=== PATIENT | male | born 1935 | race Caucasian/White ===

== ENCOUNTER 2016-02-12 22:18 | Emergency (ER) | payer MEDICARE ==
[2016-02-12 22:33] VITALS: BP 116/66
== END 2016-02-12 22:34 | disposition left against medical advice (07) ==
LOC: ED 22:18
DX: R50.9 Fever, unspecified (principal)

== ENCOUNTER 2016-03-02 23:38 | Observation (INO) | payer MEDICARE ==
[2016-03-03] MEDS ORDERED: Haloperidol INJ IV/IM* 5 MG/ML AMP ONE (00:24)
[2016-03-03] MEDS ORDERED: diPHENhydraMINE IV* 50 MG/ML 1 ml VIAL (BENADRYL) ONE (00:24)
[2016-03-03] MEDS ORDERED: NS 0.9% 1000 ML* 1,000 ML IV ONE (00:25)
[2016-03-03] MEDS ORDERED: Haloperidol INJ IV/IM* 5 MG/ML AMP IM ONE (00:35)
[2016-03-03] MEDS: Haloperidol INJ IV/IM* 5 MG/ML AMP IM ONE ×2 (00:40→00:53)
[2016-03-03] MEDS: diPHENhydraMINE IV* 50 MG/ML 1 ml VIAL (BENADRYL) IV ONE ×2 (00:40→00:53)
[2016-03-03 01:21] LABS: Hematocrit 42 % (42-52); Hemoglobin 13.6 g/dl (14.0-18.0); Mean Corpuscular HGB Conc 33 g/dl (31-36); Mean Corpuscular Hemoglobin 29 pg (27-31); Mean Corpuscular Volume 90 fL (80-94); Mean Platelet Volume 8 um3 (7.4-10.4); Red Blood Count 4.68 10^6/ul (4.0-5.4); Red Cell Distribution Width 16 % (10.5-15); White Blood Count 7.1 10^3/ul (3.5-10.8)
[2016-03-03 01:32] LABS: Urine Bilirubin Negative (Negative); Urine Glucose Negative (Negative); Urine Nitrite Negative (Negative)
[2016-03-03 01:33] LABS: Albumin 3.6 g/dL (3.2-5.2); BUN/Creatinine Ratio 18.9 (8-20); Calcium 9.2 mg/dL (8.6-10.3); EGFR African American 70.2 (>60); EGFR Non-African American 54.6 (>60); Globulin 3.4 g/dL (2-4); Potassium 4.1 mmol/L (3.5-5.0); Total Bilirubin 0.6 mg/dL (0.2-1.0)
[2016-03-03 01:35] LABS: Troponin I 0.02 ng/mL (<0.04)
--- NOTE | 2016-03-03 02:37 | ED ---
Gage Pierre Aidan, scribed for Prakash Orantes on 03/03/16 at 0042 . Altered Mental Status - HPI Summary HPI Summary: 80 y/o male presents to the ED with acute, constant, moderate AMS. He is alert and oriented to himself, however, is unable to demonstrate orientation to place or time. According to his , he has not been feeling good at all today. Associated symptoms include a fever that was slightly reduced with Tylenol today and a cough. Hx of Alzheimers for 6 months. - History Of Current Complaint Chief Complaint: EDAltMentalStatus Stated Complaint: AMS Time Seen by Provider: 03/03/16 00:07 Hx Obtained From: Family/Senior Benefits Manager - Onset/Duration: Unknown, Still Present Timing: Constant, Lasting Days Severity Initially: Moderate Severity Currently: Moderate Character: Confusion, Agitation, Responsiveness Aggravating Factor(s): Unknown Alleviating Factor(s): Unknown Associated Signs And Symptoms: Positive: Fever. Negative: Negative - cough Related History: Similar Episode/Diagnosed As: - Dx of Alzheimer's disease - Risk Factors Cardiac Risk Factors: Hypertension, Smoking - former smoker, CAD CVA Risk Factor: Hypertension, Smoking - former smoker - Allergies/Home Medications Allergies/Adverse Reactions: Allergies Allergy/AdvReac Type Severity Reaction Status Date / Time ENVIRONMENTAL ALLERGIES Allergy Itching Uncoded 02/13/16 13:07 PMH/Surg Hx/FS Hx/Imm Hx Endocrine/Hematology History: Denies: Hx Diabetes Cardiovascular History: Reports: Hx Coronary Artery Disease, Hx Hypertension - MEDICATION IN USE, WELL CONTROLLED, Hx Rheumatic Fever Respiratory History: Reports: Hx Asthma, Hx Chronic Obstructive Pulmonary Disease (COPD) Denies: Hx Pneumonia GI History: Reports: Hx Gastroesophageal Reflux Disease, Other GI Disorders - mild heartburn occasionally History: Denies: Hx Dialysis, Hx Renal Disease Musculoskeletal History: Reports: Hx Arthritis Sensory History: Reports: Hx Contacts or Glasses, Hx Hearing Aid - right Opthamlomology History: Reports: Hx Contacts or Glasses Neurological History: Reports: Hx Dementia - early dementia - Surgical History Surgery Procedure, Year, and Place: Aortic valve replacement, CABG, aneurysm repair Infectious Disease History: Unable to Obtain/Confirm Infectious Disease History: Denies: Traveled Outside the [place] in Last 30 Days - Family History Known Family History: Positive: Cardiac Disease - Social History Occupation: Disabled Lives: With Family Alcohol Use: Daily Alcohol Amount: 1 bottle of beer per day Substance Use Type: Reports: None Smoking Status (MU): Former Smoker Type: Cigarettes Amount Used/How Often: 3 PPD Length of Time of Smoking/Using Tobacco: 38 years Have You Smoked in the Last Year: No Review of Systems Positive: Fever. Negative: Chills, Fatigue, Skin Diaphoresis Eyes: Negative ENT: Negative Cardiovascular: Negative Positive: Cough. Negative: Shortness Of Breath Gastrointestinal: Negative Genitourinary: Negative Musculoskeletal: Negative Skin: Negative Neurological: Other - AMS Positive: Slurred Speech. Negative: Headache, Weakness, Paresthesia, Numbness, Syncope Psychological: Other - AMS All Other Systems Reviewed And Are Negative: Yes Physical Exam Triage Information Reviewed: Yes Vital Signs On Initial Exam: Initial Vitals Temp Pulse Resp BP Pulse Ox 99.2 F 75 16 116/72 100 03/02/16 23:43 03/02/16 23:43 03/02/16 23:43 03/02/16 23:43 03/02/16 23:43 Vital Signs Reviewed: Yes Appearance: Positive: Well-Appearing, No Pain Distress Skin: Positive: Warm, Skin Color Reflects Adequate Perfusion, Dry Head/Face: Positive: Normal Head/Face Inspection Eyes: Positive: EOMI, APURVA ENT: Positive: Normal ENT inspection Neck: Positive: Supple, Nontender Respiratory/Lung Sounds: Positive: Clear to Auscultation, Breath Sounds Present Cardiovascular: Positive: Pulses are Symmetrical in both Upper and Lower Extremities. Negative: RRR - tachycardic Abdomen Description: Positive: Nontender, Soft Bowel Sounds: Positive: Present Musculoskeletal: Positive: Strength/ROM Intact Neurological: Positive: Sensory/Motor Intact. Negative: Alert, Oriented to Person Place, Time Psychiatric: Positive: Other - agitated and confused. Negative: Affect/Mood Appropriate - Markell Coma Scale Coma Scale Total: 14 Diagnostics - Vital Signs Vital Signs Temp Pulse Resp BP Pulse Ox 03/02/16 23:43 99.2 F 75 16 116/72 100 - Laboratory Result Diagrams: 03/03/16 00:40 03/03/16 00:40 Lab Statement: Any lab studies that have been ordered have been reviewed, and results considered in the medical decision making process. Re-Evaluation - Re-Evaluation First Eval Re-Evaluation Time: 00:46 - The patient was very combative and uncooperative on re-evaluation. Change: Worse Altered Mental Statu Course/Dx - Course Course Of Treatment: The patient will be admitted to Dr. Hatch with a diagnosis of AMS and delirium. - Diagnoses Discharge Diagnoses: Altered mental status, delerium Discharge - Discharge Plan Condition: Stable Disposition: ADMITTED TO [facility] Discharge Disposition Comment: The patient will be admitted to Dr. Hatch. Patient Education Materials: Acute Delirium (ED), Altered Mental Status (ED) The documentation as recorded by the Gage redmond Aidan accurately reflects the service I personally performed and the decisions made by Rolanda martino Emmanuel.
[2016-03-03] MEDS ORDERED: Polyethylene Glycol 3350* 17 GM PACKET PO PRN (02:51)
[2016-03-03] MEDS ORDERED: CMCS: Melatonin (NF) 3 MG TAB PO PRN (02:59)
[2016-03-03] MEDS ORDERED: Albuterol 2.5 MG/3 ML NEB.SOL* (0.083%) INH PRN (02:59)
[2016-03-03] MEDS ORDERED: Acetaminophen TAB* 325 MG PO PRN (02:59)
[2016-03-03] MEDS ORDERED: Ondansetron INJ* 2 MG/ML VIAL IV PRN (02:59)
[2016-03-03] MEDS ORDERED: NS 0.9% 1000 ML* 1,000 ML IV SCH (03:00)
--- NOTE | 2016-03-03 03:47 | HP ---
H&P (Free Text) History and Physical: PCP: [facility] Date/Time of Evaluation: 03/03/2016 0250 CC: confusion, agitation, aggression HPI: Mr Covarrubias is an 80YO male recently diagnosed with Alzheimer's presenting with acute delirium. He is currently in 5point leather restraints and unable to contribute to this history which is supplied by his . She relates that he was recently DX'd w/ Alzheimer's. He had reported not feeling well yesterday, but did not have any specific complaints beyond some diarrhea. He does have frequent abdominal pain and this was unchanged. After he went to bed, she decided to check on him. When she woke him, he was very startled, agitated, and confused. EMS was called and he became very aggressive which is continuing. At this time a CT brain has been unable to be performed. He has received 10mg haloperidol and 50mg diphenhydramine. After time for the haloperidol & diphenhydramine to take effect, he calmed and CT brain was able to be obtained. Vitals are stable & labs appear baseline. PMedHx CAD/CABG AVR AFIB on rivaroxaban PVD LE aneurysm s/p stent at [facility] Dec 2015 Alzheimer's dementia asthma GERD Allergies ENVIRONMENTAL ALLERGIES Allergy (Uncoded 02/13/16 13:07) Itching Ambulatory Orders Fluticasone NASAL SPRAY 50MCG* [Flonase NASAL SPRAY 50MCG*] 2 spray BOTH NARES DAILY 10/11/15 Fluticasone-Salmeterol 250-50* [Advair Diskus 250-50*] 1 puff INH BID 10/11/15 Simvastatin (NF) [Zocor (NF)] 40 mg PO QPM 10/11/15 Donepezil Hydrochloride [Aricept] 10 mg PO BEDTIME 11/23/15 Rivaroxaban TAB(*) [Xarelto 15 mg(*)] 15 mg PO DAILY 11/23/15 Metoprolol Tartrate TAB* [Lopressor TAB*] 25 mg PO Q12HR 01/20/16 Ranitidine TAB (NF) [Zantac TAB (NF)] 1 tab PO Q12HR PRN 01/20/16 Polyethylene Glycol 3350* [Miralax*] 17 gm PO DAILY PRN #30 01/21/16 Atrovent Hfa Inhaler* 03/03/16 Symbicort 80/4.5 (NF) PRN 03/03/16 Ventolin HFA Inhaler* PRN 03/03/16 SocHx: former smoker quit >50years ago, trivial alcohol, no recreational drugs; lives at home with his ; full code status FamHx: reviewed, non-contributory ROS: as above, otherwise reviewed and all were negative Constitutional: NAD, normally developed, thin elderly white male vitals: Vital Signs Temp 37.3 C 03/02/16 23:43 Pulse 94 03/03/16 01:30 Resp 16 03/02/16 23:43 BP 140/85 03/03/16 01:30 Pulse Ox 99 03/03/16 01:30 Intake & Output 03/02/16 03/02/16 03/03/16 11:59 23:59 11:59 Intake Total 1000 Balance 1000 Weight 0 oz Intake: IV Fluids 1000 HEENM: atraumatic; sclera/conjunctiva: non-icteric/clear; blephara: sunken; hearing: markedly hard of hearing; oropharynx: clear, mucosa tacky Neck: soft tissue: non-tender; thyroid: normal Pulmonary: scant scattered rhonchi, good aeration, no accessory muscle use CV: RR/RR, normal S1S2, no carotid bruit, no jugular venous distention, 2+ B DP/ PT, no edema Abdominal: soft, non-distended, non-tender, no rebound/guarding/rigidity, normoactive bowel sounds, no hepatosplenomegaly or masses, no costovertebral angle tenderness Musculoskeletal: general: grossly intact; gait: unable to assess Integumental: normal appearance and texture Psychiatric orientation: AA&O to PP, not TS affect: varies from calm to pinpoint angry outbursts and gutteral animal noises mood: variable as above eye contact: poor content: unreliable memory: currently impaired responses: timely insight: poor Testing: Lab Results 03/03/16 03/03/16 03/03/16 Range/Units 00:40 00:40 00:40 WBC 7.1 (3.5-10.8) 10^3/ul RBC 4.68 (4.0-5.4) 10^6/ul Hgb 13.6 L (14.0-18.0) g/dl Hct 42 (42-52) % MCV 90 (80-94) fL MCH 29 (27-31) pg MCHC 33 (31-36) g/dl RDW 16 H (10.5-15) % Plt Count 195 (150-450) 10^3/ul MPV 8 (7.4-10.4) um3 Neut % (Auto) 72.1 (38-83) % Lymph % (Auto) 16.2 L (25-47) % Parker % (Auto) 10.4 H (1-9) % Eos % (Auto) 1.0 (0-6) % Baso % (Auto) 0.3 (0-2) % Absolute Neuts (auto) 5.1 (1.5-7.7) 10^3/ul Absolute Lymphs (auto) 1.1 (1.0-4.8) 10^3/ul Absolute Monos (auto) 0.7 (0-0.8) 10^3/ul Absolute Eos (auto) 0.1 (0-0.6) 10^3/ul Absolute Basos (auto) 0 (0-0.2) 10^3/ul Absolute Nucleated RBC 0 10^3/ul Nucleated RBC % 0 INR (Anticoag Therapy) 1.39 H (0.89-1.11) APTT 40.0 H (26.0-36.3) seconds Sodium 134 (133-145) mmol/L Potassium 4.1 (3.5-5.0) mmol/L Chloride 103 (101-111) mmol/L Carbon Dioxide 22 (22-32) mmol/L Anion Gap 9 (2-11) mmol/L BUN 24 (6-24) mg/dL Creatinine 1.27 H (0.67-1.17) mg/dL Est GFR ( Amer) 70.2 (>60) Est GFR (Non-Af Amer) 54.6 (>60) BUN/Creatinine Ratio 18.9 (8-20) Glucose 134 H (70-100) mg/dL Lactic Acid (0.5-2.0) mmol/L Calcium 9.2 (8.6-10.3) mg/dL Total Bilirubin 0.60 (0.2-1.0) mg/dL AST 21 (13-39) U/L ALT 18 (7-52) U/L Alkaline Phosphatase 76 (34-104) U/L Total Creatine Kinase 76 (10-223) U/L Troponin I 0.02 (<0.04) ng/mL B-Natriuretic Peptide ( - 100) pg/mL Total Protein 7.0 (6.4-8.9) g/dL Albumin 3.6 (3.2-5.2) g/dL Globulin 3.4 (2-4) g/dL Albumin/Globulin Ratio 1.1 (1-3) Urine Color Urine Appearance Urine pH (5-9) Ur Specific [place] (1.010-1.030) Urine Protein (Negative) Urine Ketones (Negative) Urine Blood (Negative) Urine Nitrate (Negative) Urine Bilirubin (Negative) Urine Urobilinogen (Negative) Ur Leukocyte Esterase (Negative) Urine Glucose (Negative) Urine Ascorbic Acid (Negative) 03/03/16 03/03/16 03/03/16 Range/Units 00:40 00:40 01:17 WBC (3.5-10.8) 10^3/ul RBC (4.0-5.4) 10^6/ul Hgb (14.0-18.0) g/dl Hct (42-52) % MCV (80-94) fL MCH (27-31) pg MCHC (31-36) g/dl RDW (10.5-15) % Plt Count (150-450) 10^3/ul MPV (7.4-10.4) um3 Neut % (Auto) (38-83) % Lymph % (Auto) (25-47) % Parker % (Auto) (1-9) % Eos % (Auto) (0-6) % Baso % (Auto) (0-2) % Absolute Neuts (auto) (1.5-7.7) 10^3/ul Absolute Lymphs (auto) (1.0-4.8) 10^3/ul Absolute Monos (auto) (0-0.8) 10^3/ul Absolute Eos (auto) (0-0.6) 10^3/ul Absolute Basos (auto) (0-0.2) 10^3/ul Absolute Nucleated RBC 10^3/ul Nucleated RBC % INR (Anticoag Therapy) (0.89-1.11) APTT (26.0-36.3) seconds Sodium (133-145) mmol/L Potassium (3.5-5.0) mmol/L Chloride (101-111) mmol/L Carbon Dioxide (22-32) mmol/L Anion Gap (2-11) mmol/L BUN (6-24) mg/dL Creatinine (0.67-1.17) mg/dL Est GFR ( Amer) (>60) Est GFR (Non-Af Amer) (>60) BUN/Creatinine Ratio (8-20) Glucose (70-100) mg/dL Lactic Acid 3.7 H* (0.5-2.0) mmol/L Calcium (8.6-10.3) mg/dL Total Bilirubin (0.2-1.0) mg/dL AST (13-39) U/L ALT (7-52) U/L Alkaline Phosphatase (34-104) U/L Total Creatine Kinase (10-223) U/L Troponin I (<0.04) ng/mL B-Natriuretic Peptide 148 H ( - 100) pg/mL Total Protein (6.4-8.9) g/dL Albumin (3.2-5.2) g/dL Globulin (2-4) g/dL Albumin/Globulin Ratio (1-3) Urine Color Yellow Urine Appearance Cloudy Urine pH 7.0 (5-9) Ur Specific [place] 1.023 (1.010-1.030) Urine Protein Negative (Negative) Urine Ketones Negative (Negative) Urine Blood Negative (Negative) Urine Nitrate Negative (Negative) Urine Bilirubin Negative (Negative) Urine Urobilinogen Negative (Negative) Ur Leukocyte Esterase Negative (Negative) Urine Glucose Negative (Negative) Urine Ascorbic Acid * H (Negative) CXR, personally reviewed: small bibasilar infiltrates vs atelectasis CT brain WO: ordered, pending Impression: 80M presenting with altered mental status of uncertain etiology DIAGNOSIS & PLAN Primary confusion, dDx: sundowning vs TIA/CVA vs partial complex seizures vs doubt infection : awaiting CT brain WO : consider EEG pending CT brain results : consider neurology consult if not cleared in AM : supportive care Secondary CAD/CABG : continue beta ciera & statin AVR : no acute issues AFIB : continue rivaroxaban & metoprolol PVD : low fat diet : continue simvastatin LE aneurysm s/p stent at [facility] Dec 2015 : no acute issues : continue statin Alzheimer's dementia : continue donepezil asthma : mometasone/formoterol : tiotropium : albuterol nebs PRN GERD : omeprazole Admission Rational: inpatient for management of acute behavioral issues of uncertain etiology in a patient at high risk of decompensation, inappropriate for outpatient setting DVTp: rivaroxaban Code Status: full HCP:
[2016-03-03 06:46] LABS: BUN/Creatinine Ratio 19.3 (8-20); Calcium 8.6 mg/dL (8.6-10.3); EGFR African American 83.7 (>60); EGFR Non-African American 65.1 (>60); Potassium 3.9 mmol/L (3.5-5.0)
[2016-03-03] MEDS ORDERED: Haloperidol INJ IV/IM* 5 MG/ML AMP IV SLOW PU ONE (07:20)
--- NOTE | 2016-03-03 07:47 | RAD ---
INDICATION: Fever. COMPARISON: Comparison is made with a prior study from January 20, 2016. TECHNIQUE: A portable view of the chest was obtained. FINDINGS: The patient is status post aortic valve replacement surgery. The heart appears mildly enlarged and unchanged. There is mild prominence of the interstitial markings which are unchanged. There are small patchy bibasilar infiltrates. No pleural effusion is seen. IMPRESSION: SMALL BIBASILAR INFILTRATES.
--- NOTE | 2016-03-03 07:57 | RAD ---
INDICATION: Altered mental status COMPARISON: Most recent comparison of the brain is dated November 01, 2015 TECHNIQUE: Contiguous axial sections of the brain were obtained from the skull base to the vertex without contrast. FINDINGS: The ventricles, cisterns and sulci exhibit central greater than peripheral involutional changes similar in appearance to the previous CT of the brain. There is periventricular and subcortical white matter hypoattenuation most consistent with chronic microvascular disease also similar to the previous CT of the brain. Otherwise the ewing-white matter differentiation is adequately maintained and there is no sulcal effacement. No significant focal abnormality or mass effect is present. There is no evidence for intracranial hemorrhage. No significant focal osseous abnormality is present. There is mild anterior posterior ethmoid air cell mucosal thickening. The mastoid air cells are well-aerated. IMPRESSION: No acute intracranial abnormality.
[2016-03-03] MEDS ORDERED: Metoprolol Tartrate TAB* 25 MG PO SCH (08:00)
[2016-03-03] MEDS ORDERED: Spiriva Inhaler DEVICE* 1 EACH DEVICE INH ONE (08:00)
[2016-03-03 08:33] VITALS: BP 148/88
[2016-03-03] MEDS ORDERED: Mometasone/Formoter 200/5 MDI INH SCH (09:00)
[2016-03-03] MEDS ORDERED: Pantoprazole IV* 40 MG IV SCH (09:00)
[2016-03-03] MEDS ORDERED: Tiotropium CAP.INH* CAP.INH/18 MCG (USE ORDER SET !) INH SCH (09:00)
[2016-03-03] MEDS ORDERED: Docusate CAP* 100 MG PO SCH (09:00)
--- NOTE | 2016-03-03 12:57 | PN ---
Subjective Date of Service: 03/03/16 Interval History: Saw patient this afternoon. He was sitting up in bed eating lunch. Calm, reported no complaints. Denies any pain. Says he lives home with his Beckie. Admits to memory problems. Called Beckie at home but no answer, left VM. Family History: Unchanged from Admission Social History: Unchanged from Admission Past Medical History: Unchanged from Admission Objective Active Medications: Acetaminophen (Tylenol Tab*) 650 mg PO Q6H PRN Albuterol (Ventolin 2.5 Mg/3 Ml Neb.Devika*) 2.5 mg INH Q2H PRN Atorvastatin Calcium (Lipitor*) 20 mg PO QPM RASHEEDA Docusate Sodium (Colace Cap*) 200 mg PO BID RASHEEDA Donepezil HCl (Aricept Tab*) 10 mg PO BEDTIME RASHEEDA Sodium Chloride (Ns 0.9% 1000 Ml*) 1,000 mls @ 75 mls/hr IV PER RATE RASHEEDA Melatonin (Melatonin (Nf)) 3 mg PO BEDTIME PRN; Protocol Metoprolol Tartrate (Lopressor Tab*) 25 mg PO BID WITH MEALS RASHEEDA Mometasone Furoate/Formoterol Fumar (Dulera 200/5 Mdi*) 2 puff INH BID RASHEEDA Ondansetron HCl (Zofran Inj*) 4 mg IV Q6H PRN Pantoprazole Sodium (Protonix Iv*) 40 mg IV DAILY RASHEEDA Polyethylene Glycol/Electrolytes (Miralax*) 17 gm PO DAILY PRN Rivaroxaban (Xarelto(*)) 15 mg PO 1700 RASHEEDA Tiotropium [place] (Spiriva Cap.Inh*) 1 cap INH DAILY RASHEEDA Vital Signs 03/03/16 03/03/16 03/03/16 03:00 03:30 04:03 Temperature 99.1 F Pulse Rate 85 84 Respiratory Rate Blood Pressure 135/85 147/95 (mmHg) O2 Sat by Pulse 99 99 Oximetry 03/03/16 03/03/16 03/03/16 05:06 07:46 08:00 Temperature 97.9 F Pulse Rate 91 75 Respiratory 16 17 18 Rate Blood Pressure 145/96 (mmHg) O2 Sat by Pulse 96 95 Oximetry 03/03/16 08:32 Temperature 98.4 F Pulse Rate 84 Respiratory 16 Rate Blood Pressure 148/88 (mmHg) O2 Sat by Pulse 98 Oximetry Oxygen Devices in Use Now: None Appearance: Elderly, M, laying in bed in NAD Eyes: No Scleral Icterus Ears/Nose/Mouth/Throat: Mucous Membranes Moist Neck: NL Appearance and Movements; NL JVP Respiratory: Symmetrical Chest Expansion and Respiratory Effort, Clear to Auscultation Cardiovascular: NL Sounds; No Murmurs; No JVD, RRR Abdominal: NL Sounds; No Tenderness; No Distention Lymphatic: No Cervical Adenopathy Extremities: No Edema Skin: No Rash or Ulcers Neurological: - - Alert, oriented to self, "hospital" could not tell me what city or the year or month, said it was Winter and correct day, no focal deficits Result Diagrams: 03/03/16 00:40 03/03/16 05:55 Assess/Plan/Problems-Billing Assessment: Delirium/AMS in an 80 yo M with hx of AD, AFib on rivaroxaban, CAD, PVR, asthma , GERD - Patient Problems (1) Delirium Current Visit: Yes Comment: seems to have resolved. In the setting of dementia. Unclear what the trigger may have been. No evidence of infection, CT head negative. EEG done, pending read. ?dehydration. Continue Donepezil. Trying to contact . (2) CAD (coronary artery disease) Current Visit: Yes Comment: Continue metoprolol, statin (3) Afib Current Visit: No Comment: Continue metoprolol and xarelto (4) Asthma Current Visit: Yes Comment: Continue home medications (5) DVT prophylaxis Current Visit: No Comment: Xarelto Status and Disposition: Awaiting input from , potential discharge today
[2016-03-03] MEDS ORDERED: Rivaroxaban TAB(*) 15 MG PO SCH (17:00)
[2016-03-03] MEDS ORDERED: Atorvastatin* 20 MG TAB PO SCH (18:00)
[2016-03-03] MEDS ORDERED: Donepezil TAB* 5 MG PO SCH (21:00)
--- NOTE | 2016-03-04 03:40 | DS ---
DISCHARGE SUMMARY: DATE OF ADMISSION: 03/03/16 DATE OF DISCHARGE: 03/03/16 PRIMARY CARE PHYSICIAN: [facility]. PRINCIPAL DISCHARGE DIAGNOSES: 1. Delirium. 2. Dementia. SECONDARY DIAGNOSES: 1. Atrial fibrillation, on Xarelto. 2. Congestive heart disease. 3. Peripheral vascular disease. 4. Alzheimer's disease. 5. Dementia. 6. Asthma. 7. Gastroesophageal reflux disease. STUDIES DONE DURING HOSPITALIZATION: 1. Chest x-ray, impression: Small bibasilar infiltrates. 2. CT of the brain without contrast, impression: No acute intracranial abnormality. DISCHARGE MEDICATIONS REGIMEN: 1. Tylenol 650 mg by mouth every 6 hours as needed for pain or fever. 2. Haldol 5 mg by mouth every 6 hours as needed for agitation. 3. Xarelto 15 mg by mouth daily. 4. Donepezil 10 mg by mouth at bedtime. 5. Simvastatin 40 mg by mouth at bedtime. 6. Metoprolol tartrate 25 mg by mouth 2 times daily. 7. MiraLAX 17 g by mouth daily as needed for constipation. 8. Ranitidine 1 tablet by mouth every 12 hours as needed for indigestion. 9. Flonase 2 sprays at both nares daily. 10. Advair 1 puff inhaled 2 times daily. HISTORY OF PRESENT ILLNESS AND HOSPITAL SUMMARY: Please see the full history and physical by Dr. Brayan Mota for full details. Briefly, Mr. Covarrubias is an 80- year-old male with a past medical history as above including Alzheimer 's dementia diagnosed about 6 months ago, who presents to the hospital with delirium. This was in the setting of some recent diarrhea and possibly some low -grade fevers. Labs and imaging were relatively unremarkable aside from mild lactic acidosis and LARISA, which resolved promptly with IV fluids. The patient had no signs of infection on blood work or urinalysis. Chest x-ray was not convincing for any pneumonia. CT scan of the head was negative. An EEG was done. The final report is pending at the time of this discharge summary. The patient was agitated in hospital and received Benadryl and Haldol. Today, when he was evaluated, he seemed back to his baseline. I spoke at length with his , who is eager to take him home. We decided to trial some Haldol at home to see if it would help with the infrequent times he becomes overly agitated. She will follow up with his PCP as an outpatient. TIME SPENT: Total time spent on this discharge 45 minutes. This is a summary of the hospitalization. Please see the medical record for further details. [id number] #: [id number] MTDD
--- NOTE | 2016-03-11 02:24 | EEG ---
ELECTROENCEPHALOGRAPHY: DATE OF STUDY: 03/03/16 - ROOM #405 LOCATION: He is an inpatient on . CLINICAL PROBLEM: Agitation and confusion in a patient with dementia. MEDICATIONS: Include: 1. Dulera. 2. Donepezil. 3. Xarelto. 4. Lopressor. 5. Zofran. REPORT: This 16-channel EEG is remarkable for background activity consisting of a posterior rhythm approaching alpha frequencies about 7 to sometimes 8 cycles per second, which does appear to be suppressed somewhat by eye opening. Beta rhythms otherwise predominate centrally and beta rhythms predominate bifrontally. Activation procedures were not attempted. The patient may drowse with some vertex sharp activity with sleep spindles and not clearly identified. There are no focal epileptiform discharges during this recording. CLINICAL IMPRESSION: Abnormal EEG due to generalized slowing of background rhythms consistent with mild diffuse cerebral dysfunction. There are no focal or epileptiform discharges during this recording. [id number] #: [id number] MTDD
--- NOTE | 2016-05-30 22:14 | ED ---
Gage Pierre Aidan, scribed for Prakash Orantes on 03/03/16 at 0533 . Progress - Progress Note Progress Note: BRAIN CT IMPRESSION: NO HEMORRHAGE, GROSS ACUTE INFARCT, OR CHANGE. Re-Evaluation - Re-Evaluation First Eval Re-Evaluation Time: 00:46 - The patient was very combative and uncooperative on re-evaluation. Change: Worse Course/Dx - Course Course Of Treatment: The patient will be admitted to Dr. Hatch with a diagnosis of AMS and delirium. - Diagnoses Provider Diagnoses: Altered mental status, delerium The documentation as recorded by the Gage redmond Aidan accurately reflects the service I personally performed and the decisions made by Rolanda martino Emmanuel.
== END 2016-03-03 15:20 | disposition home or self-care (01) ==
LOC: ED 23:38 → MED 03-03 02:53 → INTOOBSV 03-03 02:53
PROVIDERS: ADMIT Hospitalist; ATTEND Hospitalist
DX: G30.9 Alzheimer's disease, unspecified (principal); F02.80 Dementia in other diseases classified elsewhere, unspecified severity, without behavioral disturbance, psychotic disturbance, mood disturbance, and anxiety; F05 Delirium due to known physiological condition; I48.91 Unspecified atrial fibrillation; Z79.01 Long term (current) use of anticoagulants; I50.9 Heart failure, unspecified; I25.10 Atherosclerotic heart disease of native coronary artery without angina pectoris; I73.9 Peripheral vascular disease, unspecified; K21.9 Gastro-esophageal reflux disease without esophagitis; J45.909 Unspecified asthma, uncomplicated; Z79.899 Other long term (current) drug therapy; Z87.891 Personal history of nicotine dependence; Z95.1 Presence of aortocoronary bypass graft
CPT/HCPCS: 36415; 70450; 71010; 80048; 80053; 81003; 82550; 83605; 83880; 84484; 85025; 85610; 85730; 87040; 95816; 96361; 96372; 96374; 96375; 99285; A9270-GY; G0378; J1200; J1630

== ENCOUNTER 2017-03-26 12:43 | Emergency (ER) | payer MEDICARE ==
--- NOTE | 2017-03-26 13:37 | RAD ---
HISTORY: Syncope COMPARISONS: March 03, 2016 TECHNIQUE: Multiple contiguous axial CT scans were obtained of the head without intravenous contrast. FINDINGS: HEMORRHAGE/INFARCT: There is no hemorrhage or acute infarct. MASSES/SHIFT: There is no mass or shift. EXTRA-AXIAL SPACES: There are no extra-axial fluid collections. SULCI AND VENTRICLES: There is mild diffuse and proportional enlargement of the sulci and ventricles. CEREBRUM: There is mild hypoattenuation of the periventricular and subcortical white matter. BRAINSTEM: There are no focal parenchymal abnormalities. CEREBELLUM: There are no focal parenchymal abnormalities. VESSELS: There is calcification of the cavernous segments of the internal carotid arteries bilaterally. PARANASAL SINUSES: There is mucosal thickening of ethmoid air cells. There is postsurgical change to the sinuses. ORBITS: The orbits are unremarkable. BONES AND SOFT TISSUE: No bone or soft tissue abnormalities are noted. OTHER: None IMPRESSION: NO ACUTE INTRACRANIAL PATHOLOGY.
[2017-03-26 13:42] LABS: ABS Basophils 0 10^3/ul (0-0.2); ABS Eosinophils 0.2 10^3/ul (0-0.6); ABS Lymphocytes 1.2 10^3/ul (1.0-4.8); ABS Monocytes 0.6 10^3/ul (0-0.8); ABS Nucleated RBC 0 10^3/ul; Hematocrit 42 % (42-52); Hemoglobin 13.5 g/dl (14.0-18.0); Lymphocyte % 17.6 % (25-47); Mean Corpuscular HGB Conc 33 g/dl (31-36); Mean Corpuscular Hemoglobin 29 pg (27-31); Mean Corpuscular Volume 89 fL (80-94); Mean Platelet Volume 8 um3 (7.4-10.4); Nucleated Red Blood Cells % 0; Platelet Count 151 10^3/ul (150-450); Red Blood Count 4.66 10^6/ul (4.0-5.4); Red Cell Distribution Width 15 % (10.5-15); White Blood Count 7.1 10^3/ul (3.5-10.8)
--- NOTE | 2017-03-26 13:54 | RAD ---
HISTORY: Syncope COMPARISONS: March 03, 2016 VIEWS: 1: frontal portable view of the chest at 1:20 PM FINDINGS: LINES AND TUBES: None. CARDIOMEDIASTINAL SILHOUETTE: The cardiomediastinal silhouette is normal for portable technique. PLEURA: The costophrenic angles are sharp. No pleural abnormalities are noted. LUNG PARENCHYMA: There is hyperinflation with biapical emphysematous change. There is improved aeration of the lung bases. ABDOMEN: The upper abdomen is clear. There is no subphrenic gas. BONES AND SOFT TISSUES: The patient is status post median sternotomy. IMPRESSION: COPD.
[2017-03-26 14:00] LABS: EGFR Non-African American 54.9 (>60)
[2017-03-26 14:21] LABS: Urine Appearance Clear; Urine Blood Negative (Negative); Urine Color Straw; Urine Ketones Negative (Negative); Urine Protein Negative (Negative); Urine Specific Gravity 1.003 (1.010-1.030); Urine Urobilinogen Negative (Negative)
[2017-03-26] MEDS: Iodixanol* (CONTRAST) 320 MG/ML 100 ML SDV IV ONE (15:18)
[2017-03-26 15:31] VITALS: BP 137/84
--- NOTE | 2017-03-26 15:38 | RAD ---
CLINICAL HISTORY: Abdominal pain COMPARISON: February 13, 2016 TECHNIQUE: Multiple contiguous axial CT scans were obtained of the abdomen and pelvis after the administration of intravenous contrast. Coronal and sagittal multiplanar reformations are submitted for review. Oral contrast was not administered. Delayed images were obtained through the abdomen and pelvis. FINDINGS: LUNG BASES: There is linear atelectasis versus pleural parenchymal scarring of the right lung base. There are prosthetic aortic valve is noted. LIVER: The liver is diffusely low in attenuation compared to the spleen. There are no focal hepatic parenchymal masses. BILE DUCTS: There is no intrahepatic or extrahepatic biliary dilatation. GALLBLADDER: The gallbladder is incompletely distended but is grossly normal. PANCREAS: There is fatty atrophy of the pancreas. There is stable coarse calcification of the neck of the pancreas. There is no pancreatic ductal dilatation. SPLEEN: Normal in size and appearance. UPPER GI TRACT: Evaluation of the gastrointestinal tract is limited by incomplete gastric distention. The upper GI tract is unremarkable. SMALL BOWEL AND MESENTERY: The small bowel is normal in contour, course, and caliber. There is no obstruction or dilatation. COLON: The colon is normal in contour, course, caliber. There is no pericolonic inflammatory change. ADRENALS: Normal bilaterally. KIDNEYS: The kidneys are normal in shape, size, contour, and axis. There is no hydronephrosis or nephrolithiasis. BLADDER: The bladder is smooth in contour. PELVIC ORGANS: The prostate is diffusely enlarged. The seminal vesicles are symmetric. AORTA: The patient is status post aortic stent graft. 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 IVC: Unremarkable LYMPH NODES: There is no lymphadenopathy by size criteria. ABDOMINAL WALL: There is no evidence for abdominal wall hernia. BONES AND SOFT TISSUES: There are mild diffuse degenerative changes. OTHER: None IMPRESSION: 1. FATTY LIVER. 2. STATUS POST AORTIC STENT GRAFT AND EMBOLIZATION OF A RIGHT ILIAC ARTERY ANEURYSM. 3. ENLARGED PROSTATE. 4. NO ACUTE CT PATHOLOGY OF THE VISUALIZED ABDOMEN OR PELVIS.
[2017-03-26 16:09] LABS: Urine Appearance Clear; Urine Blood Negative (Negative); Urine Color Colorless; Urine Ketones Negative (Negative); Urine Protein Negative (Negative); Urine Specific Gravity 1.003 (1.010-1.030); Urine Urobilinogen Negative (Negative)
--- NOTE | 2017-03-26 23:36 | CONS ---
CONSULTATION REPORT: DATE OF CONSULT: 03/26/17 - EMERGENCY DEPT CONSULTATION FROM: Dr. Cedeno. REASON FOR CONSULTATION: Presyncope. HEALTHCARE PROXY: His and his daughter Cheyanne. PRIMARY CARE PHYSICIAN: Treva Klein MD SOURCE OF INFORMATION: History obtained from interview with the patient and his daughter, review of past medical records. RELIABILITY: Good. HISTORY OF PRESENT ILLNESS: This is an 81-year-old man, last hospital stay in February after admitted with agitated delirium on top of his dementia, who has been in his usual state at home, although his daughter has been encouraging him to drink more because she says he "does not drink enough water" who had an episode this morning where he was standing in the kitchen, suddenly became dizzy , and collapsed to the floor without loss of consciousness. He described the dizziness as a disequilibrium, not associated with any chest pain, shortness of breath, nausea, or vomiting. This all occurred around 8:30 in the morning. He was able to stand up from the floor and call for help. He still felt dizzy that gradually resolved over the ensuing hour. He denies any recent fevers or chills, cough, although he is coughing in the room, sick contacts. No medication changes, diarrhea, or emesis. He notes some slight dysuria for several days. When interviewed by this author, he had noted crampy abdominal pain that was rated low out of 10 that has been bothering him for some time. This was corroborated by his daughter who says he has had some crampy abdominal pain for the last several weeks if not longer that she notes he struggles with constipation for some time. Other than mild abdominal discomfort, the patient felt well and was ambulated around the emergency room, back and forth the emergency room without any distress. 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 MEDICATIONS: 1. Namenda. 2. Loratadine. 3. Ipratropium. 4. Simvastatin. 5. Donepezil. 6. Ranitidine. 7. MiraLAX. 8. Metoprolol tartrate twice daily. 9. Advair. 10. Fluticasone. 11. Xarelto. 12. Symbicort. 13. Albuterol. ALLERGIES: No known drug allergies. FAMILY HISTORY: No CAD or CVA. SOCIAL HISTORY: Former tobacco. Lives with his . REVIEW OF SYSTEMS: As per HPI, otherwise all other systems are negative. PHYSICAL EXAM: Vitals when seen by this author: Blood pressure 117/77, heart rate 66, respiratory rate 16, T-max in the emergency room 96.8, 98% on room air. Orthostatics unremarkable. General: Appears stated age, interactive, pleasant, in no apparent distress. Oropharynx is clear. He has moist membranes. Sclerae are anicteric. Non-elevated JVD. He has regular rate and rhythm. Mechanical heart sounds. His lungs are clear to auscultation. His abdomen is soft, nontender, and nondistended to deep palpation. Positive bowel sounds. Extremities are warm and well perfused. No clubbing, cyanosis, or edema. He is alert and oriented x3. He also knows the name of the president. His cranial nerves II through XII are intact. He has 5/5 strength. He is ambulated with intact gait. DIAGNOSTIC STUDIES/LAB DATA: Labs reviewed. Urine toxicology normal. Urine is bland. Creatinine is 1.26. Troponin I was 0.00. TSH 2.39. His white blood cell count is 7.1, hemoglobin 13.5, and platelets of 151,000. Data reviewed. Chest x-ray, no cardiopulmonary disease. Notable for underlying COPD. Brain CT, no acute intracranial pathology. CT abdomen and pelvis, fatty liver status post aortic stent graft and embolization of the right iliac artery aneurysm. Enlarged prostate. EKG; normal sinus rhythm, normal limit axis, normal limit intervals, no ST or T - wave changes. ASSESSMENT AND PLAN: This is an 81-year-old man, past medical history is outlined in the history of present illness. Had an episode of sudden onset lightheadedness followed by a fall to the floor without loss of consciousness, now fully recovered and ambulating around the emergency room. His laboratory data is unremarkable, concordant with negative chest x-ray, head CT, CT abdomen and pelvis, and normal EKG. He has a negative troponin. No evidence of infection as evidenced by no leukocytosis, normal urinalysis. He likely suffers from some level of chronic dehydration given his low p.o. intake per his daughter. I think he is safe to return home. I discussed this with his daughter and the patient, both are in agreement with the plan. We discussed extensive return to emergency room instructions including recurrent symptoms or chest pain, shortness of breath, nausea, vomiting, lightheadedness, loss of consciousness, or again repeat near loss of consciousness, pain, inability to tolerate medications. They acknowledged understanding. [id number]/[facility] #: [id number]
--- NOTE | 2017-03-27 16:53 | ED ---
Todd Pierre Angela, scribed for Darren Cedeno MD on 03/26/17 at 1358 . Complex/Multi-Sys Presentation - HPI Summary HPI Summary: This pt is a 81 y/o male presenting to [facility] c/o collapsing s/p weakness in his legs today. Pt denies head strike or LOC. Pt reports his legs "crumbled" and he fell. Daughter reports the pt has abdominal pain, described as "tightness" and additionally c/o nausea. Pt denies any chest pain. Pt is 8 hours s/p surgery for aneurysm repair. - History Of Current Complaint Chief Complaint: EDWeakness Time Seen by Provider: 03/26/17 13:00 Hx Obtained From: Patient Onset/Duration: Sudden Onset, Still Present Timing: Hours Severity Currently: Moderate Location: Pain At: - abdomen Aggravating Factor(s): nothing Alleviating Factor(s): nothing Associated Signs And Symptoms: Positive: Weakness, Nausea, Abdominal Pain - Allergies/Home Medications Allergies/Adverse Reactions: Allergies Allergy/AdvReac Type Severity Reaction Status Date / Time ENVIRONMENTAL ALLERGIES Allergy Itching Uncoded 02/13/16 13:07 Home Medications: Home Medications Albuterol HFA INHALER* [Ventolin HFA Inhaler*] 2 puff INH Q6H PRN 03/26/17 [ History Confirmed 03/26/17] Budesonide/Formote 80/4.5(NF) [Symbicort 80/4.5 (NF)] 1 puff INH DAILY PRN 03/26 [History Confirmed 03/26/17] Donepezil TAB* [Aricept 5 MG TAB*] 5 mg PO BEDTIME 03/26/17 [History Confirmed 03/26/17] Ipratropium HFA INHALER(NF) [Atrovent Hfa Inhaler(NF)] 2 puff INH Q6H 03/26/17 [ History Confirmed 03/26/17] LoraTADine TAB(NF) [Claritin 10 MG TAB(NF)] 10 mg PO DAILY 03/26/17 [History Confirmed 03/26/17] Memantine XR CAP* [Namenda XR CAP*] 28 mg PO DAILY 03/26/17 [History Confirmed 03/26/17] PMH/Surg Hx/FS Hx/Imm Hx Endocrine/Hematology History: Denies: Hx Diabetes Cardiovascular History: Reports: Hx Coronary Artery Disease, Hx Hypertension - MEDICATION IN USE, WELL CONTROLLED, Hx Rheumatic Fever, Other Cardiovascular Problems/Disorders - AAA SX Respiratory History: Reports: Hx Asthma, Hx Chronic Obstructive Pulmonary Disease (COPD), Hx Seasonal Allergies Denies: Hx Pneumonia GI History: Reports: Hx Gastroesophageal Reflux Disease, Other GI Disorders - mild heartburn occasionally History: Denies: Hx Dialysis, Hx Renal Disease Musculoskeletal History: Reports: Hx Arthritis Sensory History: Reports: Hx Cataracts - L cataract, Hx Contacts or Glasses - Reading, Hx Hearing Aid - right Opthamlomology History: Reports: Hx Cataracts - L cataract, Hx Contacts or Glasses - Reading Neurological History: Reports: Hx Dementia - early dementia, Other Neuro Impairments/Disorders - Aneurysm Dec 25 w/ stent Denies: Hx Headaches, Hx Migraine, Hx Nerve Disease Psychiatric History: Reports: Hx Anxiety - Surgical History Surgery Procedure, Year, and Place: Aortic valve replacement, CABG, aneurysm repair Infectious Disease History: No Infectious Disease History: Reports: Hx Shingles Denies: Traveled Outside the [place] in Last 30 Days - Family History Known Family History: Positive: Cardiac Disease - Social History Alcohol Use: Rare Alcohol Amount: 1 bottle of beer per day Substance Use Type: Reports: None Smoking Status (MU): Former Smoker Type: Cigarettes Amount Used/How Often: 3 PPD Length of Time of Smoking/Using Tobacco: 38 years Have You Smoked in the Last Year: No Review of Systems All Other Systems Reviewed And Are Negative: Yes Physical Exam Vital Signs On Initial Exam: Initial Vitals Temp Pulse Resp BP Pulse Ox 96.8 F 61 17 120/97 99 03/26/17 12:49 03/26/17 12:49 03/26/17 12:49 03/26/17 12:49 03/26/17 12:49 Diagnostics - Vital Signs Vital Signs Temp Pulse Resp BP Pulse Ox 03/26/17 12:49 96.8 F 61 17 120/97 99 - Laboratory Lab Results: Lab Results 03/26/17 03/26/17 Range/Units 13:15 13:15 WBC 7.1 (3.5-10.8) 10^3/ul RBC 4.66 (4.0-5.4) 10^6/ul Hgb 13.5 L (14.0-18.0) g/dl Hct 42 (42-52) % MCV 89 (80-94) fL MCH 29 (27-31) pg MCHC 33 (31-36) g/dl RDW 15 (10.5-15) % Plt Count 151 (150-450) 10^3/ul MPV 8 (7.4-10.4) um3 Neut % (Auto) 70.8 (38-83) % Lymph % (Auto) 17.6 L (25-47) % [place] % (Auto) 8.1 (1-9) % Eos % (Auto) 3.0 (0-6) % Baso % (Auto) 0.5 (0-2) % Absolute Neuts (auto) 5.0 (1.5-7.7) 10^3/ul Absolute Lymphs (auto) 1.2 (1.0-4.8) 10^3/ul Absolute Monos (auto) 0.6 (0-0.8) 10^3/ul Absolute Eos (auto) 0.2 (0-0.6) 10^3/ul Absolute Basos (auto) 0 (0-0.2) 10^3/ul Absolute Nucleated RBC 0 10^3/ul Nucleated RBC % 0 Lactic Acid 1.6 (0.5-2.0) mmol/L Result Diagrams: 03/26/17 13:15 03/26/17 13:15 Lab Statement: Any lab studies that have been ordered have been reviewed, and results considered in the medical decision making process. - Radiology Chest XR Xray Interpretation: Positive (See Comments) - IMPRESSION: COPD. Dr. Cedeno has reviewed this radiology report. Radiology Interpretation Completed By: Radiologist - CT Brain CT CT Interpretation: No Acute Changes - IMPRESSION: No acute intracranial pathology. Dr. Cedeno has reviewed this radiology report. CT Interpretation Completed By: Radiologist Abdomen/Pelvis CT CT Interpretation: No Acute Changes - IMPRESSION: 1. Fatty Liver. 2. 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 3. Enlarged prostate. 4. No acute CT pathology of the visualized abdomen or pelvis. Dr. Cedeno has reviewed this radiology., Positive (See Comments) CT Interpretation Completed By: Radiologist - EKG 12:59 Cardiac Rate: Bradycardia EKG Rhythm: Sinus Bradycardia - at 57 bpm EKG Interpretation: No ST elevation. Complex Multi-Symp Course/Dx Assessment/Plan: This pt is a 81 y/o male presenting to [facility] c/o collapsing s/ p weakness in his legs today. Pt denies head strike or LOC. Pt reports his legs "crumbled" and he fell. Daughter reports the pt has abdominal pain, described as "tightness" and additionally c/o nausea. Pt denies any chest pain. Pt is 8 hours s/p surgery for aneurysm repair. Test results without any significant abnormalities except for creatinine of 1.26. Urinalysis is negative for UTI. Urine toxicology is negative. Chest XR: COPD. Abdomen/Pelvis CT: 1. Fatty Liver. 2. 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 3. Enlarged prostate. 4. No acute CT pathology of the visualized abdomen or pelvis. At this point I discussed the case with Dr. Palma, hospitalist, who consulted on the pt and recommends for the pt can be discharged home. Pt is hemodynamically stable, alert and oriented x3. Pt was instructed to return to the ED for any worsening symptoms. - Diagnoses Provider Diagnoses: Near syncope - Physician Notifications Discussed Care Of Patient With: Tim Palma Instructed by Provider To: Other - I discussed pt care with Dr. Palma, hospitalist, who reports he will consult on the pt. Discharge - Discharge Plan Condition: Stable Disposition: HOME Patient Education Materials: Near Syncope (ED) Referrals: Treva Klein MD [Primary Care Provider] - Additional Instructions: Please follow up with your primary care provider and nutrition partner. RETURN TO THE ED FOR ANY WORSENING SYMPTOMS. The documentation as recorded by the Todd redmond Angela accurately reflects the service I personally performed and the decisions made by , Darren Cedeno MD.
== END 2017-03-26 16:40 | disposition home or self-care (01) ==
LOC: ED 12:43
DX: R55 Syncope and collapse (principal); K76.0 Fatty (change of) liver, not elsewhere classified; N40.0 Benign prostatic hyperplasia without lower urinary tract symptoms; J44.9 Chronic obstructive pulmonary disease, unspecified; Z87.891 Personal history of nicotine dependence; Z95.828 Presence of other vascular implants and grafts
CPT/HCPCS: 36415; 70450; 71045; 74177; 80053; 80307; 80320; 81003; 83605; 83735; 83880; 84443; 84484; 85025; 85730; 93005; 99283; G0480; Q9967

== ENCOUNTER 2018-07-28 10:06 | Inpatient (IN) | payer MEDICARE ==
--- NOTE | 2018-07-28 10:46 | ED ---
Syncope/Near Syncope - HPI Summary HPI Summary: This patient is a 83 year old M presenting to [facility] with a chief complaint of syncope since a couple of hours ago. The patient rates the pain 3/10 in severity. Symptoms aggravated by deep breathing and coughing. Symptoms alleviated by nothing. Per EMS report, the patient was in the bathroom shaving when he had a syncopal episode. His family stated they saw the patient having "seizure-like" activity on the floor. The patient remembers having the syncopal episode, but had some LOC. He notes rib pain bilaterally. He denies CLAUDIO and blurred vision. He does not have hx of seizures, but has COPD, quadruple bypass , and mitral valve replacement history. Patient is a non-smoker. - History Of Current Complaint Chief Complaint: EDFall Time Seen by Provider: 07/28/18 10:19 Hx Obtained From: Patient Onset/Duration: Sudden Onset, Lasting Hours, Resolved Timing: Hours Context: Witnessed - family saw him having "seizure-like" activity on the floor Activity At Onset: Other - shaving in the bathroom Aggravating Factor(s): Other - deep breathing and coughing Alleviating Factor(s): Nothing Associated Signs And Symptoms: Other - positive - bilateral rib pain negative - CLAUDIO and blurred vision - Allergies/Home Medications Allergies/Adverse Reactions: Allergies Allergy/AdvReac Type Severity Reaction Status Date / Time No Known Drug Allergies Allergy See Comment Verified 07/28/18 13:36 ENVIRONMENTAL ALLERGIES Allergy Itching Uncoded 07/28/18 10:16 Home Medications: Home Medications Polyethylene Glycol 3350* [Miralax*] 17 gm PO BID 07/28/18 [History Confirmed ] Rosuvastatin Calcium 10 mg PO DAILY 07/28/18 [History Confirmed 07/28/18] PMH/Surg Hx/FS Hx/Imm Hx Previously Healthy: No Endocrine/Hematology History: Denies: Hx Diabetes Cardiovascular History: Reports: Hx Coronary Artery Disease, Hx Hypertension - MEDICATION IN USE, WELL CONTROLLED, Hx Rheumatic Fever, Other Cardiovascular Problems/Disorders - AAA SX Respiratory History: Reports: Hx Asthma, Hx Chronic Obstructive Pulmonary Disease (COPD), Hx Seasonal Allergies Denies: Hx Pneumonia GI History: Reports: Hx Gastroesophageal Reflux Disease, Other GI Disorders - mild heartburn occasionally History: Denies: Hx Dialysis, Hx Renal Disease Musculoskeletal History: Reports: Hx Arthritis Sensory History: Reports: Hx Cataracts - L cataract, Hx Contacts or Glasses - Reading, Hx Hearing Aid - right Opthamlomology History: Reports: Hx Cataracts - L cataract, Hx Contacts or Glasses - Reading Neurological History: Reports: Hx Dementia - early dementia, Other Neuro Impairments/Disorders - Aneurysm Dec 25 w/ stent Denies: Hx Headaches, Hx Migraine, Hx Nerve Disease Psychiatric History: Reports: Hx Anxiety - Surgical History Surgical History: Yes Surgery Procedure, Year, and Place: Aortic valve replacement, CABG, aneurysm repair Infectious Disease History: No Infectious Disease History: Reports: Hx Shingles Denies: Traveled Outside the [place] in Last 30 Days - Family History Known Family History: Positive: Cardiac Disease - Social History Alcohol Use: Occasionally Alcohol Amount: 1 bottle of beer per day Hx Substance Use: No Substance Use Type: Reports: None Smoking Status (MU): Former Smoker Type: Cigarettes Amount Used/How Often: 3 PPD Length of Time of Smoking/Using Tobacco: 38 years Have You Smoked in the Last Year: No Review of Systems Negative: Fever Negative: Blurred Vision Positive: Other - bilateral rib pain Positive: Syncope - with LOC. Negative: Headache All Other Systems Reviewed And Are Negative: Yes Physical Exam - Summary Physical Exam Summary: VITAL SIGNS: Reviewed. GENERAL: Patient is a well-developed and nourished elderly MALE who is lying comfortable in the stretcher. Patient is not in any acute respiratory distress. HEAD AND FACE: No signs of trauma. No ecchymosis, hematomas or skull depressions. No sinus tenderness. EYES: PERRLA, EOMI x 2, No injected conjunctiva, no nystagmus. EARS: Hearing grossly intact. Ear canals and tympanic membranes are within normal limits. MOUTH: Oropharynx within normal limits. NECK: Supple, trachea is midline, no adenopathy, no JVD, no carotid bruit, no c- spine tenderness, neck with full ROM. CHEST: Symmetric, no tenderness at palpation LUNGS: Decreased breath sounds bilaterally. No wheezing, but crackles at base of lungs. No respiratory distress CVS: Regular rate and rhythm, S1 and S2 present, no murmurs or gallops appreciated. ABDOMEN: Bilateral rib cage pain. Soft, non-tender. No signs of distention. No rebound no guarding, and no masses palpated. Bowel sounds are normal. EXTREMITIES: FROM in all major joints, no edema, no cyanosis or clubbing. NEURO: Alert and oriented x 3. No acute neurological deficits. Speech is normal and follows commands. SKIN: Dry and warm. GCS: 15 Triage Information Reviewed: Yes Vital Signs On Initial Exam: Initial Vitals Temp Pulse Resp BP Pulse Ox 97.4 F 56 16 114/74 95 07/28/18 10:13 07/28/18 10:13 07/28/18 10:13 07/28/18 10:13 07/28/18 10:13 Vital Signs Reviewed: Yes - Markell Coma Scale Best Eye Response: 4 - Spontaneous Best Motor Response: 6 - Obeys Commands Best Verbal Response: 5 - Oriented Coma Scale Total: 15 Diagnostics - Vital Signs Vital Signs Temp Pulse Resp BP Pulse Ox 07/28/18 10:13 97.4 F 56 16 114/74 95 - Laboratory Result Diagrams: 07/31/18 06:36 07/31/18 06:36 Lab Statement: Any lab studies that have been ordered have been reviewed, and results considered in the medical decision making process. - Radiology CXR Radiology Interpretation Completed By: Radiologist Summary of Radiographic Findings: IMPRESSION: COPD. These findings were reviewed by Dr. Cedeno. - CT BRAIN CT Interpretation Completed By: Radiologist Summary of CT Findings: IMPRESSION: NO ACUTE INTRACRANIAL PATHOLOGY. These findings were reviewed by Dr. Cedeno. - EKG 1028 Cardiac Rate: Bradycardia - 58 BPM EKG Rhythm: Sinus Bradycardia EKG Comparison: No Significant Change - taken on 03/26/17 Summary of EKG Findings: 1028 - No ST elevation, normal axis, sinus bradycardia 1224 Cardiac Rate: NL - 69 BPM EKG Rhythm: Sinus Rhythm Summary of EKG Findings: 1224 - Sinus rhythm, 69 BPM, no ST elevation Re-Evaluation - Re-Evaluation First Eval Re-Evaluation Time: 12:22 Comment: Nurse Elliott reports that the patient's heart rate is in the 30s and 40s. I discussed admission with the patient. Course/Dx Assessment/Plan: This patient is a 83 year old M presenting to [facility] with a chief complaint of syncope since a couple of hours ago. The patient rates the pain 3/10 in severity. Symptoms aggravated by deep breathing and coughing. Symptoms alleviated by nothing. Per EMS report, the patient was in the bathroom shaving when he had a syncopal episode. His family stated they saw the patient having "seizure-like" activity on the floor. The patient remembers having the syncopal episode, but had some LOC. He notes rib pain bilaterally. He denies CLAUDIO and blurred vision. He does not have hx of seizures, but has COPD, quadruple bypass, and mitral valve replacement history. Patient is a non-smoker. Past medical history significant for sepsis, dementia, pneumonia, atrial fibrillation taking Xarelto, delirium, and asthma. Blood test results without any significant abnormality except for sodium of 134, potassium of 5.1, creatinine of 1.31, and glucose of 208. Head CT impression: No acute intracranial pathology. Chest x-ray impression: COPD. In the ED course, the patient has remained stable. However he had 2 episodes where his heart rate decreased as low as 31 BPM, and he seems like he patient had a syncopal episode at the time. I discussed the case with Dr. Rosen from cardiology who came and consulted for this patient. He reports that he may benefit of a pacemaker. He also recommends for the patient to be admitted to the hospitalist. I discussed the physical exam findings and test results with Dr. Mercer from the hospital services who accepted the patient for admission. - Diagnoses Provider Diagnoses: Symptomatic bradycardia - Physician Notifications Discussed Care of Patient With: Claire Mercer Time Discussed With Above Provider: 12:04 Instructed by Provider To: Other - I discussed the patient's case with Dr. Mercer , hospitalist, who agrees to admit the patient. At 1228 I discussed the patient' s case with Dr. Rosen, experimental rocketsled mechanic. He will come see the patient in the ED and consult for him. Discharge - Sign-Out/Discharge Documenting (check all that apply): Patient Departure - admit Patient Received Moderate/Deep Sedation with Procedure: No - Discharge Plan Condition: Stable Disposition: ADMITTED TO [facility] - Billing Disposition and Condition Condition: STABLE Disposition: Admitted to [facility] - Attestation Statements Document Initiated by Scribe: Yes Documenting Scribe: Dago Velarde Provider For Whom Scribe is Documenting (Include Credential): Dr. Darren Cedeno MD Scribe Attestation: Dago Pierre, scribed for Dr. Darren Cedeno MD on 07/31/18 at 0732. Scribe Documentation Reviewed: Yes Provider Attestation: The documentation as recorded by the Dago redmond accurately reflects the service I personally performed and the decisions made by me, Dr. Darren Cedeno MD Status of Alena Document: Viewed
[2018-07-28 10:50] LABS: ABS Lymphocytes 0.6 10^3/ul (1.0-4.8); ABS Monocytes 0.3 10^3/ul (0-0.8); ABS Neutrophils 5.5 10^3/ul (1.5-7.7); Eosinophil % 0.6 %; Hematocrit 44 % (42-52); Hemoglobin 14.5 g/dL (14.0-18.0); Lymphocyte % 9.4 %; Mean Corpuscular HGB Conc 33 g/dL (31-36); Mean Corpuscular Hemoglobin 30 pg (27-31); Mean Corpuscular Volume 89 fL (80-94); Mean Platelet Volume 7.8 fL (7.4-10.4); Platelet Count 139 10^3/uL (150-450); Red Blood Count 4.89 10^6 /uL (4.18-5.48); Red Cell Distribution Width 15 % (10-15); White Blood Count 6.5 10^3/uL (3.5-10.8)
[2018-07-28 11:13] LABS: ALT 22 U/L (7-52); AST 24 U/L (13-39); Albumin 4.1 g/dL (3.2-5.2); Albumin/Globulin Ratio 1.5 (1-3); Alkaline Phosphatase 78 U/L (34-104); BUN/Creatinine Ratio 17.6 (8-20); Blood Urea Nitrogen 23 mg/dL (6-24); CO2 Carbon Dioxide 28 mmol/L (22-32); Calcium 9.5 mg/dL (8.6-10.3); Chloride 102 mmol/L (101-111); Creatine Kinase 79 U/L (10-223); EGFR African American 63.2 (>60); EGFR Non-African American 52.3 (>60); Globulin 2.8 g/dL (2-4); Glucose 208 mg/dL (70-100); Magnesium 2.3 mg/dL (1.9-2.7); Sodium 134 mmol/L (135-145); Total Protein 6.9 g/dL (6.4-8.9)
[2018-07-28 11:14] LABS: Troponin I 0.01 ng/mL (<0.04)
[2018-07-28 11:32] LABS: Anion Gap 4 mmol/L (2-11); Potassium 5.1 mmol/L (3.5-5.0)
[2018-07-28 11:55] LABS: Alcohol < 10 mg/dL (<10)
[2018-07-28 12:07] LABS: TSH (Thyroid Stimulating Horm) 2.35 mcIU/mL (0.34-5.60)
[2018-07-28] MEDS ORDERED: NS 0.9% 1000 ML** 1,000 ML IV SCH (13:30)
[2018-07-28] MEDS ORDERED: Albuterol HFA INHALER* 8 gm MDI INH PRN (13:32)
--- NOTE | 2018-07-28 14:00 | HP ---
CONTINUATION ADDENDUM INCLUDED ON THIS REPORT CC: KAREN Martinez; Dr. Velarde; Dr. Rosen * HISTORY AND PHYSICAL: DATE OF ADMISSION: 07/28/18 PRIMARY CARE PROVIDER: KAREN Martinez STYLE ADVISOR: Dr. Velarde. CHIEF COMPLAINT: Fall/syncope. HISTORY OF PRESENT ILLNESS: Sampson Covarrubias is an 83-year-old male with a history of dementia, but otherwise pretty independent with his activities of daily living, who was standing by the kitchen sink and all of a sudden collapsed and lost consciousness. His heard a "thump" and then she noted her on the floor. Apparently, he regained consciousness quickly. He had no complaints apart from his ribs being sore. The patient's stated that approximately 6 months ago, the patient's beta-ciera was discontinued and he has been "slowing down" for the past several months. He is still able to walk a couple of blocks to the post office and back on a daily basis. The patient currently has no complaints apart from ribcage pain. He was evaluated by Dr. Rosen in the emergency department and was noted to have transient episodes of bradycardia with a heart rate down to 28. At that point, he appeared to be in junctional rhythm. He is going to be admitted to the intensive care unit for monitoring and actually pacemaker placement. Unfortunately, he is on Eliquis and will need to wait for the patient to be 2 days off Eliquis prior to the pacemaker insertion. CONTINUATION ADDENDUM: PAST MEDICAL HISTORY: 1. The patient has history of Alzheimer's dementia with elements of aggression when hospitalized. 2. History of coronary artery bypass grafting. 3. Status post aortic valve replacement of bioprosthetic valve. 4. History of paroxysmal atrial fibrillation, on anticoagulation. 5. History of left lower extremity aneurysm, status post stenting in [facility] in December 2015. 6. Peripheral vascular disease. 7. Asthma. 8. Gastroesophageal reflux disease. 9. Diabetes, diet controlled. 10. Hearing loss, wears hearing aids. CURRENT MEDICATIONS: Include: 1. Flonase nasal spray 2 sprays both nostrils daily. 2. Atrovent inhaler 2 puffs every 6 hours p.r.n. 3. Advair 250/50 one inhalation b.i.d. 4. Rosuvastatin 10 mg daily. 5. MiraLAX 17 g b.i.d. 6. Symbicort 80/4.5 one inhalation daily p.r.n. 7. Albuterol inhaler on a p.r.n. basis. 8. Ranitidine 150 mg every 12 hours p.r.n. 9. Loratadine 10 mg daily. 10. Aricept 5 mg at bedtime. 11. Xarelto 15 mg daily. ALLERGIES: No known drug allergies. FAMILY HISTORY: Reviewed and noncontributory. SOCIAL HISTORY: The patient quit smoking 60 years ago. He denies any alcohol or drug use. His healthcare proxy is his who is by the patient's bedside today, 's name is Beckie Covarrubias. REVIEW OF SYSTEMS: Please see history of present illness. All the remaining 12 systems were reviewed with the patient and were otherwise negative. PHYSICAL EXAMINATION GENERAL: The patient is a pleasant 83-year-old male, in no acute distress. The patient is alert and oriented x2. VITAL SIGNS: Blood pressure of 108/71, heart rate of 56 and regular, respiratory rate 17, oxygen saturation 96% on room air, temperature of 97.4. HEENT: Head: Atraumatic, normocephalic. Eyes: Pupils are equal, reactive to light and accommodation. Oropharynx is clear. Mucosa moist. NECK: Supple. No JVD. No bruits bilaterally. RESPIRATORY: Clear to auscultation bilaterally. CARDIOVASCULAR: Regular rate and rhythm. No murmur. ABDOMEN: Soft, nontender. Bowel sounds are present in all 4 quadrants. EXTREMITIES: There is no edema. Pulses are +2 bilaterally. No clubbing or cyanosis. NEURO EVALUATION: Speech is clear. Cranial nerves II through XII are grossly intact. Motor strength is 5/5 bilaterally. SKIN: On evaluation of the skin, the patient has small scratch on his nose. The area is not infected. PSYCHIATRIC EVALUATION: The patient is oriented x2, pleasant, cooperative with no evidence of anxiety or depression. DIAGNOSTIC STUDIES/LAB DATA: Laboratory data showed white blood cell count of 6.5, hemoglobin of 14.5, hematocrit of 44, and platelets of 139. Sodium was 134 , potassium 4.1, chloride 102, carbon dioxide 28, BUN 22, creatinine 1.31. The patient's baseline creatinine had been at 1.2 to 1.3 in the past year. Liver function tests are unremarkable. Lactic acid 1.6. Troponin of 0.01. Brain natriuretic peptide was 71. Portable chest x-ray, impression: "COPD." The patient's EKG showed normal sinus rhythm with heart rate of 69 beats per minute with no ST changes. CT of the brain, impression: "No acute intracranial pathology." ASSESSMENT AND PLAN: 1. The patient has episodes of junctional rhythm and sinus bradycardia with subsequent syncope. At this point, he was thoroughly evaluated by Dr. Rosen. His recommendation is for the patient to be placed in the intensive care unit with atropine by the bedside. We will hold the patient's Eliquis and likely the patient is going to be restarted in 2 days. 2. In regard to the patient's history of aortic valve replacement, transthoracic echocardiogram is going to be obtained. 3. In regard to the patient's history of Alzheimer's, Aricept is going to be continued. 4. The patient's history of paroxysmal atrial fibrillation and he is on Xarelto that is going to be held. 5. For DVT prophylaxis, the patient is going to be placed on heparin subcutaneously. 6. In regard to the patient's code status, the patient's code status is do not resuscitate and his signed his MOLST form today. TIME SPENT: Approximately 65 minutes was spent on admission of this patient, more than half that time was spent [id number] with the patient during the interview and physical exam. [id number]/CPS #: [id number]/CPS #: [id number] BO
[2018-07-28 14:12] LABS: Urine Appearance Clear; Urine Bilirubin Negative (Negative); Urine Blood Negative (Negative); Urine Color Yellow; Urine Glucose 2+(150 mg/dL) (Negative); Urine Ketones Trace (Negative); Urine Nitrite Negative (Negative); Urine Protein Negative (Negative); Urine Specific Gravity 1.024 (1.010-1.030); Urine Urobilinogen Negative (Negative)
--- NOTE | 2018-07-28 14:35 | HP ---
CC: KAREN Martinez; Dr. Velarde; Dr. Rosen HISTORY AND PHYSICAL: ADDENDUM: PAST MEDICAL HISTORY: 1. The patient has history of Alzheimer's dementia with elements of aggression when hospitalized. 2. History of coronary artery bypass grafting. 3. Status post aortic valve replacement of bioprosthetic valve. 4. History of paroxysmal atrial fibrillation, on anticoagulation. 5. History of left lower extremity aneurysm, status post stenting in [facility] in December 2015. 6. Peripheral vascular disease. 7. Asthma. 8. Gastroesophageal reflux disease. 9. Diabetes, diet controlled. 10. Hearing loss, wears hearing aids. CURRENT MEDICATIONS: Include: 1. Flonase nasal spray 2 sprays both nostrils daily. 2. Atrovent inhaler 2 puffs every 6 hours p.r.n. 3. Advair 250/50 one inhalation b.i.d. 4. Rosuvastatin 10 mg daily. 5. MiraLAX 17 g b.i.d. 6. Symbicort 80/4.5 one inhalation daily p.r.n. 7. Albuterol inhaler on a p.r.n. basis. 8. Ranitidine 150 mg every 12 hours p.r.n. 9. Loratadine 10 mg daily. 10. Aricept 5 mg at bedtime. 11. Xarelto 15 mg daily. ALLERGIES: No known drug allergies. FAMILY HISTORY: Reviewed and noncontributory. SOCIAL HISTORY: The patient quit smoking 60 years ago. He denies any alcohol or drug use. His healthcare proxy is his who is by the patient's bedside today, 's name is Beckie Covarrubias. REVIEW OF SYSTEMS: Please see history of present illness. All the remaining 12 systems were reviewed with the patient and were otherwise negative. PHYSICAL EXAMINATION GENERAL: The patient is a pleasant 83-year-old male, in no acute distress. The patient is alert and oriented x2. VITAL SIGNS: Blood pressure of 108/71, heart rate of 56 and regular, respiratory rate 17, oxygen saturation 96% on room air, temperature of 97.4. HEENT: Head: Atraumatic, normocephalic. Eyes: Pupils are equal, reactive to light and accommodation. Oropharynx is clear. Mucosa moist. NECK: Supple. No JVD. No bruits bilaterally. RESPIRATORY: Clear to auscultation bilaterally. CARDIOVASCULAR: Regular rate and rhythm. No murmur. ABDOMEN: Soft, nontender. Bowel sounds are present in all 4 quadrants. EXTREMITIES: There is no edema. Pulses are +2 bilaterally. No clubbing or cyanosis. NEURO EVALUATION: Speech is clear. Cranial nerves II through XII are grossly intact. Motor strength is 5/5 bilaterally. SKIN: On evaluation of the skin, the patient has small scratch on his nose. The area is not infected. PSYCHIATRIC EVALUATION: The patient is oriented x2, pleasant, cooperative with no evidence of anxiety or depression. DIAGNOSTIC STUDIES/LAB DATA: Laboratory data showed white blood cell count of 6.5, hemoglobin of 14.5, hematocrit of 44, and platelets of 139. Sodium was 134, potassium 4.1, chloride 102, carbon dioxide 28, BUN 22, creatinine 1.31. The patient's baseline creatinine had been at 1.2 to 1.3 in the past year. Liver function tests are unremarkable. Lactic acid 1.6. Troponin of 0.01. Brain natriuretic peptide was 71. Portable chest x-ray, impression: "COPD." The patient's EKG showed normal sinus rhythm with heart rate of 69 beats per minute with no ST changes. CT of the brain, impression: "No acute intracranial pathology." ASSESSMENT AND PLAN: 1. The patient has episodes of junctional rhythm and sinus bradycardia with subsequent syncope. At this point, he was thoroughly evaluated by Dr. Rosen. His recommendation is for the patient to be placed in the intensive care unit with atropine by the bedside. We will hold the patient's Eliquis and likely the patient is going to be restarted in 2 days. 2. In regard to the patient's history of aortic valve replacement, transthoracic echocardiogram is going to be obtained. 3. In regard to the patient's history of Alzheimer's, Aricept is going to be continued. 4. The patient's history of paroxysmal atrial fibrillation and he is on Xarelto that is going to be held. 5. For DVT prophylaxis, the patient is going to be placed on heparin subcutaneously. 6. In regard to the patient's code status, the patient's code status is do not resuscitate and his signed his MOLST form today. TIME SPENT: Approximately 65 minutes was spent on admission of this patient, more than half that time was spent [id number] with the patient during the interview and physical exam. [id number]/[facility] #: [id number] BO
[2018-07-28 14:43] LABS: Urine Benzodiazepine Screen None Detected (None Detect); Urine Opiates Screen None Detected (None Detect)
[2018-07-28] MEDS ORDERED: Atropine SYRINGE* 0.1 MG/ML 10 ML SYRINGE (1 MG) ONE (16:04)
--- NOTE | 2018-07-28 17:00 | CONS ---
CC: Dr. Velarde; Charmaine Flores NP * CARDIOLOGY CONSULTATION: DATE OF CONSULT: 07/28/18 REASON FOR EVALUATION: Syncope and bradycardia. HISTORY OF PRESENT ILLNESS: This is a very pleasant 83-year-old gentleman who is accompanied by his . He has mild dementia and she helps with obtaining the history. He has a history of atrial flutter, hypertension, hyperlipidemia, diabetes, vascular disease, status post abdominal aortic aneurysm, and iliac aneurysm repair. His states that his blood pressures were low about 6 months ago and she stopped his metoprolol. She states about 3 months ago he was having some episodes of dizziness and finding himself on the floor without clear loss of consciousness, it was unclear how he ended up on the floor. That lasted for a short period of time and then resolved. She does state that normally he can walk fairly quickly and she has trouble keeping up with him, but over the last several months he has been going slower. He apparently was standing today and developed a sudden collapse while she was there. He was out for a few seconds. She noticed him on the floor. Because of a loss of consciousness she had called the ambulance. There was no incontinence and no seizure activity. While in the emergency room, he had a few episodes of bradycardia associated with decreased consciousness with junctional rhythm in the 30s and sinus bradycardia in the 30s. These were self- limited and resolved. He denies any chest pain, fevers, chills, sweats. He does have COPD , chronic cough, occasionally productive yellow sputum. He denies orthopnea or peripheral edema. He normally walks each day to the post office, which is a 15 minute round trip. He is not on any medications that can slow his rate other than donepezil. PAST MEDICAL HISTORY: Includes hypertension, coronary artery disease, status post bypass grafting, aortic valve replacement, APCs, atrial flutter, hearing aids bilaterally for impaired hearing, mild dementia. No strokes or mini strokes. He denies alcohol use or tobacco use in the last 55 years. PAST SURGICAL HISTORY: Includes aortic valve replacement, coronary bypass grafting at the [facility] in 2008. At that time, he had coronary bypass grafting x4 with saphenous vein graft to the LAD, the PDA coming off the left circ, the acute marginally RCA and aortic valve replacement for severe aortic stenosis. 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 Hines. 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 Also has a history of cancer , cataract removal in the left eye, tonsillectomy, and adenoidectomy. He had saphenous vein graft to LAD, saphenous vein graft to the lateral circ, saphenous vein graft to the PDA and saphenous vein graft to the acute marginal, aortic valve replacement with #23 Janet-Woodall pericardial device, aortic endarterectomy, patch repair of the aortic annulus with autologous pericardial patch, endoscopic vein harvest and apparently he had atrial arrhythmias perioperatively according to his . MEDICATIONS: Include: 1. Flonase. 2. Atrovent inhaler. 3. Advair Diskus. 4. Rosuvastatin 10 mg a day. 5. MiraLAX 17 g p.o. b.i.d. 6. Symbicort 1 puff daily as needed. 7. Ventolin 2 puffs q.6 p.r.n. 8. Zantac 1 tab q.12. 9. Claritin 10 mg a day. 10. Donepezil 5 mg at bedtime. 11. Xarelto 50 mg daily, his last dose was this morning. ALLERGIES: Include SEASONAL allergies, to GRASSES, ANIMALS, RAGWEED POLLEN. No drug allergies. SOCIAL HISTORY: He is and accompanied by his . He has 2 children. He is a retired engineering project designer. REVIEW OF SYSTEMS: Review of systems x10 was negative except as above. PHYSICAL EXAM: He is a well-developed, well-nourished gentleman in no apparent distress. Heart rates were initially in the 50s, but nenita to 70s while I was talking to him. Blood pressure was 100/59 at the time of the exam. No significant JVD. Carotids 2+. No bruits. Atraumatic, normocephalic, extraocular muscles intact . Sclerae anicteric. No significant JVD. No cervical adenopathy. Cardiac Exam: S1, S2, with 2/6 systolic ejection at the base and 2/6 holosystolic murmur at the apex. Chest with decreased breath sounds and prolonged expiratory phase. No CVAT. Abdomen: Bowel sounds present , nontender. No hepatosplenomegaly. Femoral pulses intact with left femoral bruit, distal pulses. The dorsalis pedis was absent on the left, posterior tibialis was diminished, pulses were 1+ on the right. DIAGNOSTIC STUDIES/LAB DATA: Include normal CBC, troponin of 0.01. Potassium 5.1, sodium low at 134, BUN 23, creatinine of 1.31. Glucose elevated at 208, mag at 2.3, troponin as mentioned 0.01. BNP of 71, cortisol was 23.4. Chest x-ray revealed COPD. CT of the brain revealed no acute pathology and the EKG revealed sinus rhythm with a first degree AV block, no acute changes, mildly prolonged QTC of 479, similar to the previous EKG of 04/27/18 except for the slight increase in the first degree AV block. Of note, the patient also had an echocardiogram performed on 06/02/17, which revealed normal LV function, EF of 55% to 60%, moderate left atrial enlargement, moderate right atrial enlargement, normal RV function, prosthetic aortic valve, trace regurgitation, mild MR, trace mitral valve stenosis, [id number] TR, mild pulmonary hypertension, PA pressure 37, borderline dilated ascending aorta similar to November 2015 except for an increase in TR. IMPRESSION: My impression is that Mr. Covarrubias has multiple medical problems and now presents with what appears to be symptomatic bradycardia and episode of syncope. I explained to him and his that I cannot say for certain whether his syncope was due to bradycardia. He also has low normal blood pressures and seems to be behind in taking in p.o. fluids. We also discussed the possibility of hypovolemia and progression of his valvular heart disease or coronary disease could be contributing to his symptoms. Given his advanced age and mild dementia, they did not want a major operation such as repeat valve replacement, catheterization or revascularization. However, they would be willing to accept a pacemaker. For the time being, I recommend the following: I suggested bed rest until we can arrange for a pacemaker. We will hold the Xarelto and defer transvenous or permanent pacemaker implantation until for 48 hours to allow his anticoagulation to reverse. I would consider hydration. If he requires pacing sooner, we could consider using the external pacer and/or transvenous pacer. I am hopeful that with bedrest and hydration, he will be able to tolerate with the bradycardia for the next 48 hours. I did discuss with the patient the potential for using the external pacer and tested it. He was adamant that he did not want to have the external pacer standby and was willing to continue with observation for now. Would consider using atropine p.r.n. for symptomatic bradycardia. I have contacted Dr. Jernigan and we will try to arrange for pacemaker later this week. At some point, would consider repeat evaluation for ischemia. I am reluctant to perform a pharmacologic stress test now given the potential for worsening bradycardia. He is to have an echo to reassess his LV function and his valve function. Case was reviewed with Dr. Mercer. [id number]/CPS #: [id number] BO
--- NOTE | 2018-07-28 18:02 | ECHO ---
*[facility]* [place] [address] Fax #: [phone] Transthoracic Echocardiogram Patient: Satish, Height: 74 in / 188 Sampson Maritn cm : 1935 Weight: 147 lb / Study Date: 07/28/2018 66.8 kg Age: 83 BP: 124 / 89 Gender: M BMI/BSA: 18.9 kg/m^2 HR: 65 bpm / 1.85 m^2 *Automation Design Engineer: * Sary Chaney RDCS RN *Referring Physician: * Silver Rosen MD *Reading Physician: * Silver Rosen MD Indications: Syncope. Aortic Valve Disorder. History: Chronic obstructive pulmonary disease. Alzheimer's dementia. Risk factors: Former tobacco use. Hypertension. Labs, prior tests, procedures, and surgery: Coronary artery bypass grafting. Aortic valve replacement with a bioprosthetic valve. Conclusions Summary: 1. Left ventricle: Systolic function is normal. The estimated ejection fraction is 60-65%. Systolic function is unchanged from the study of May 2017. Doppler parameters are consistent with abnormal left ventricular relaxation (grade 1 diastolic dysfunction). 2. Right ventricle: Systolic function is mildly reduced. Overall RV function is worse in comparison with the study of May 2017. 3. Left atrium: The atrium is mildly dilated. 4. Mitral valve: The findings are consistent with mild stenosis. Stenosis severity has increased in comparison with the study of May 2017. There is mild regurgitation. 5. Aortic valve: The mean systolic gradient is 9.0 mm Hg. The peak systolic gradient is 15.0 mm Hg. The valve area by the velocity-time integral method is 1.50 cm^2. The valve area by the peak velocity method is 1.60 cm^2. 6. Tricuspid valve: There is mild-moderate regurgitation. 7. Pulmonary arteries: Systolic pressure is mildly increased, estimated to be 39 mm Hg. Study data: Transthoracic echocardiogram. Procedure: Transthoracic echocardiography was performed. Image quality was fair. The study was technically limited due to body habitus and COPD. Complete 2D, spectral Doppler, and color flow Doppler. Patient status: Inpatient. Patient room number: ICU 9. The previous study was not available, so comparison is made to the report of May 2017. Rhythm: Normal sinus rhythm with pauses. Findings Left ventricle: The cavity size is normal. Wall thickness is normal. Systolic function is normal. The estimated ejection fraction is 60-65%. Systolic function is unchanged from the study of May 2017. Wall motion is normal; there are no regional wall motion abnormalities. Doppler parameters are consistent with abnormal left ventricular relaxation (grade 1 diastolic dysfunction). Right ventricle: The cavity size is normal. Systolic function is mildly reduced. Overall RV function is worse in comparison with the study of May 2017. The estimated peak pressure is 39 mm Hg. Left atrium: The atrium is mildly dilated. Right atrium: The atrium is mildly dilated. Mitral valve: The annulus is moderately calcified. The leaflets are mildly thickened. Mobility is restricted. The findings are consistent with mild stenosis. Stenosis severity has increased in comparison with the study of May 2017. There is mild regurgitation. Aortic valve: Not well visualized. There is a bioprosthetic valve. Grossly normal function by doppler. There are some echodense lesions in the left ventricular outflow tract adjacent to the anterior mitral annulus which may be related to artifact associated with the MAC. Not seen in the other views. Aortic valve appearance has not changed in comparison with the study of May 2017. There is trace regurgitation. Tricuspid valve: The valve is structurally normal. There is no evidence of stenosis. There is mild-moderate regurgitation. Pulmonic valve: Not well visualized. Aorta: Aortic root: The aortic root is not dilated. Ascending aorta: The ascending aorta is not visualized. Aortic arch: The aortic arch is not dilated. Pericardium: There is no pericardial effusion. Pulmonary arteries: Not visualized. Systolic pressure is mildly increased, estimated to be 39 mm Hg. Systemic veins: Inferior vena cava: Not visualized. Measurements Left ventricle Value Ref Aortic valve Value Ref TIARA, LAX (L) 3.9 cm 4.2 - Lemuel diam, ED 1.9 cm ----- 5.8 Peak v, S 1.9 m/sec ----- ESD, LAX 2.8 cm 2.5 - VTI, S 41.8 cm ----- 4.0 Mean grad, S 9.0 mm Hg ----- FS, LAX 28 % 25 - 43 Peak grad, S 15.0 mm Hg ----- PW, ED, LAX 1.0 cm 0.6 - LVOT/AV, VTI ratio 0.58 ----- 1.0 JOE, VTI 1.50 cm^2 ----- IVS/PW, ED 0.83 -------- JOE, Vmax 1.60 cm^2 ----- E', lat lemuel, TDI 11.7 cm/sec >=10.0 E/e', lat lemuel, TDI 11 -------- Mitral valve Value Ref E', med lemuel, TDI 7.0 cm/sec >=7.0 Peak E 1.34 m/sec --- -- E/e', med lemuel, TDI 19 -------- Peak A 1.56 m/sec ----- E', avg, TDI 9.4 cm/sec -------- Decel time 296 ms ----- E/e', avg, TDI 14 <=14 PHT 88 ms --- -- Mean grad, D 4.0 mm Hg ----- LVOT Value Ref Peak grad, D 7.0 mm Hg ----- Diam, S 1.80 cm -------- Peak E/A ratio 0.9 ----- Area 2.5 cm^2 -------- MVA, PHT 2.5 cm^2 ----- Peak nam, S 1.2 m/sec -------- MVA, LVOT cont 1.9 cm^2 ----- VTI, S 24.4 cm -------- Peak grad, S 6 mm Hg -------- Pulmonic valve Value Ref Mean grad, S 3 mm Hg -------- Peak v, S 0.67 m/sec ----- SV 63 ml -------- Peak grad, S 2.0 mm Hg ----- SV/bsa 34 ml/m^2 -------- Tricuspid valve Value Ref Ventricular septum Value Ref TR peak v 2.8 m/sec <=2.8 IVS, ED 0.8 cm 0.6 - Peak RV-RA grad, S 31 mm Hg ----- 1.0 Max TR nam 2.8 m/sec ----- Right ventricle Value Ref Aortic root Value Ref TIARA minor ax, A4C (H) 3.6 cm 1.9 - Root diam 3.2 cm <4.0 mid 3.5 Pressure, S 39 mm Hg -------- Aortic arch Value Ref Arch diam 2.7 cm ----- Left atrium Value Ref ML dim, A4C 3.8 cm -------- Decending aorta Value Ref SI dim, A4C 5.1 cm -------- Edu peak nam 0.71 m/sec ----- Vol/bsa, ES, 1-p 24 ml/m^2 12 - 37 A4C Pulmonary artery Value Ref Vol/bsa, ES, A/L (H) 39 ml/m^2 16 - 34 Pressure, S 37.0 mm Hg ----- Right atrium Value Ref ML dim, ES, A4C 4.0 cm 2.6 - 4.4 SI dim, ES, A4C (H) 5.4 cm 3.4 - 5.3 Estimated RAP 8 mm Hg -------- Legend: (L) and (H) luis carlos values outside specified reference range. Prepared and electronically signed by Silver Rosen MD 07/28/2018 18:02
[2018-07-28] MEDS: Ipratropium 0.5MG/2.5ML NEB* 0.5 MG/2.5 ML NEB.SOLN INH SCH ×2 (19:13→19:16)
[2018-07-28] MEDS: Mometasone/Formoter 200/5 MDI INH SCH (19:16)
[2018-07-28] MEDS ORDERED: Donepezil TAB* 5 MG PO SCH (21:00)
[2018-07-28] MEDS: Polyethylene Glycol 3350* 17 GM PACKET PO SCH (21:41)
[2018-07-28] MEDS: Heparin VIAL(*) 5000 UNITS/ML VIAL (FIVE THOUSAND) SUBCUT SCH (21:42)
[2018-07-28] MEDS: Acetaminophen TAB* 325 MG PO PRN (21:42)
[2018-07-29] MEDS: Ipratropium 0.5MG/2.5ML NEB* 0.5 MG/2.5 ML NEB.SOLN INH SCH ×3 (02:18→14:25)
[2018-07-29 04:50] LABS: ABS Lymphocytes 0.7 10^3/ul (1.0-4.8); ABS Monocytes 0.7 10^3/ul (0-0.8); ABS Neutrophils 8.8 10^3/ul (1.5-7.7); Eosinophil % 0.1 %; Hematocrit 44 % (42-52); Hemoglobin 14.4 g/dL (14.0-18.0); Lymphocyte % 7.2 %; Mean Corpuscular HGB Conc 33 g/dL (31-36); Mean Corpuscular Hemoglobin 29 pg (27-31); Mean Corpuscular Volume 89 fL (80-94); Mean Platelet Volume 8.2 fL (7.4-10.4); Platelet Count 139 10^3/uL (150-450); Red Blood Count 4.97 10^6 /uL (4.18-5.48); Red Cell Distribution Width 15 % (10-15); White Blood Count 10.3 10^3/uL (3.5-10.8)
[2018-07-29 05:02] LABS: BUN/Creatinine Ratio 17.9 (8-20); Calcium 9.3 mg/dL (8.6-10.3); EGFR African American 80.7 (>60); EGFR Non-African American 66.7 (>60); Potassium 4.7 mmol/L (3.5-5.0)
[2018-07-29] MEDS: Heparin VIAL(*) 5000 UNITS/ML VIAL (FIVE THOUSAND) SUBCUT SCH ×3 (06:20→20:45)
[2018-07-29] MEDS: Mometasone/Formoter 200/5 MDI INH SCH ×2 (07:42→19:26)
--- NOTE | 2018-07-29 07:50 | PN ---
Subjective Date of Service: 07/29/18 Interval History: patient sitting at bedside tele sinus rhythm, no significant pauses or bradycardia overnight complains of musculoskeletal right lower rib pain Medications Active Medications: Acetaminophen (Tylenol Tab*) 650 mg PO Q4H PRN PRN Reason: FEVER/PAIN Last Admin: 07/28/18 21:42 Dose: 650 mg Albuterol (Ventolin Hfa Inhaler*) 2 puff INH Q6H PRN PRN Reason: SOB/WHEEZING Cetirizine HCl (Zyrtec*) 10 mg PO DAILY [facility] Fluticasone Propionate (Flonase Nasal [place] 50mcg*) 2 spray BOTH NARES DAILY [facility] Heparin Sodium (Porcine) (Heparin Vial(*)) 5,000 units SUBCUT Q8HR [facility] Last Admin: 07/29/18 06:20 Dose: 5,000 units Sodium Chloride (Ns 0.9% 1000 Ml) 1,000 mls @ 75 mls/hr IV PER RATE [facility] Last Admin: 07/29/18 05:30 Dose: 75 mls/hr Ipratropium [place] (Atrovent 0.5 Mg Neb.Devika*) 0.5 mg INH Q6H [facility] Last Admin: 07/29/18 07:42 Dose: 0.5 mg Mometasone Furoate/Formoterol Fumar (Dulera 200/5 Mdi*) 2 puff INH BID [facility] Last Admin: 07/29/18 07:42 Dose: 2 puff Polyethylene Glycol/Electrolytes (Miralax*) 17 gm PO BID [facility] Last Admin: 07/28/18 21:41 Dose: 17 gm Objective Vital Signs: Temp Pulse Resp BP Pulse Ox 98.1 F 64 26 135/77 95 07/29/18 03:11 07/29/18 06:00 07/29/18 06:00 07/29/18 06:00 07/29/18 06:00 Oxygen Devices in Use Now: None Appearance: nad, pleasant Neck: Trachea Midline Respiratory: Symmetrical Chest Expansion and Respiratory Effort Cardiovascular: NL Sounds; No Murmurs; No JVD, RRR, No Edema Abdominal: NL Sounds; No Tenderness; No Distention Extremities: No Edema Skin: No Rash or Ulcers Neurological: - - awake, alert, evidence of memory loss Laboratory Results: 07/29/18 04:33 07/29/18 04:33 Total Bilirubin 0.80 mg/dL (0.2-1.0) 07/28/18 10:44 AST 24 U/L (13-39) 07/28/18 10:44 ALT 22 U/L (7-52) 07/28/18 10:44 Alkaline Phosphatase 78 U/L (34-104) 07/28/18 10:44 B-Natriuretic Peptide 71 pg/mL (<=100) 07/28/18 10:44 Total Protein 6.9 g/dL (6.4-8.9) 07/28/18 10:44 Albumin 4.1 g/dL (3.2-5.2) 07/28/18 10:44 Globulin 2.8 g/dL (2-4) 07/28/18 10:44 Albumin/Globulin Ratio 1.5 (1-3) 07/28/18 10:44 TSH 2.35 mcIU/mL (0.34-5.60) 07/28/18 10:44 07/28/18 10:44 Troponin I 0.01 Diagnostic Imaging: echo 07/28/2018 lvef 60-65%, no signifgicant aortic bioprosthetic dysfunction EKG Data: ekg 07/28/2018: NSR, 1 AVB, otherwise essentially unremarkable tele stip during LoC episode reviewed consistent with sinus arrest and junctional escape with HR < 40 bpm Assessment/Plan 1. Symptomatic sinus arrest/junctional escape - LVEF normal - No reversible causes 2. Dementia, mild 3. CAD s/p CABG and AVR 4. Paflutter on xarelto - Last dose 07/28 in AM 5. PAD s/p endovascular aortic and iliac repair 6. Right lower rib pain - Likely from fall/syncope, uncertain Hold SQ heparin after tonights dose (ordered) Would keep atropine near and temporary pacemaker pads in place Plan for permanent dual chamber pacemaker
--- NOTE | 2018-07-29 08:23 | PN ---
Subjective Date of Service: 07/29/18 Interval History: Pt c/o R lower chest pain/rib pain, likely after the syncope. Was restless last night, but now pleasant and cooperative. HR>50 overnight Objective Active Medications: Acetaminophen (Tylenol Tab*) 650 mg PO Q4H PRN PRN Reason: FEVER/PAIN Last Admin: 07/28/18 21:42 Dose: 650 mg Albuterol (Ventolin Hfa Inhaler*) 2 puff INH Q6H PRN PRN Reason: SOB/WHEEZING Cetirizine HCl (Zyrtec*) 10 mg PO DAILY [facility] Fluticasone Propionate (Flonase Nasal [place] 50mcg*) 2 spray BOTH NARES DAILY [facility] Heparin Sodium (Porcine) (Heparin Vial(*)) 5,000 units SUBCUT Q8HR [facility] Stop: 07/29/18 23:59 Last Admin: 07/29/18 06:20 Dose: 5,000 units Sodium Chloride (Ns 0.9% 1000 Ml) 1,000 mls @ 75 mls/hr IV PER RATE [facility] Last Admin: 07/29/18 05:30 Dose: 75 mls/hr Ipratropium [place] (Atrovent 0.5 Mg Neb.Devika*) 0.5 mg INH Q6H [facility] Last Admin: 07/29/18 07:42 Dose: 0.5 mg Mometasone Furoate/Formoterol Fumar (Dulera 200/5 Mdi*) 2 puff INH BID [facility] Last Admin: 07/29/18 07:42 Dose: 2 puff Polyethylene Glycol/Electrolytes (Miralax*) 17 gm PO BID [facility] Last Admin: 07/28/18 21:41 Dose: 17 gm Vital Signs - 8 hr 07/29/18 07/29/18 07/29/18 00:30 01:00 01:01 Temperature Pulse Rate 65 71 70 Respiratory 24 19 15 Rate Blood Pressure 139/86 131/85 131/80 (mmHg) O2 Sat by Pulse 92 95 92 Oximetry 07/29/18 07/29/18 07/29/18 01:31 02:08 02:18 Temperature Pulse Rate 67 59 64 Respiratory 23 17 24 Rate Blood Pressure 137/76 (mmHg) O2 Sat by Pulse 97 98 94 Oximetry 07/29/18 07/29/18 07/29/18 02:30 03:00 03:02 Temperature Pulse Rate 65 102 Respiratory 21 27 29 Rate Blood Pressure 117/76 148/73 (mmHg) O2 Sat by Pulse 96 89 Oximetry 07/29/18 07/29/18 07/29/18 03:11 03:31 04:00 Temperature 98.1 F Pulse Rate 69 79 Respiratory 20 20 Rate Blood Pressure 137/71 (mmHg) O2 Sat by Pulse 93 83 Oximetry 07/29/18 07/29/18 07/29/18 04:30 05:00 05:31 Temperature Pulse Rate 59 60 71 Respiratory 15 21 27 Rate Blood Pressure 136/81 136/80 138/78 (mmHg) O2 Sat by Pulse 95 94 96 Oximetry 07/29/18 07/29/18 07/29/18 06:00 07:44 07:53 Temperature 99 F Pulse Rate 64 70 Respiratory 18 18 Rate Blood Pressure 135/77 (mmHg) O2 Sat by Pulse 95 93 Oximetry Oxygen Devices in Use Now: None Appearance: 83 yo M in NAD, AAOx2 Eyes: No Scleral Icterus, PERRLA Ears/Nose/Mouth/Throat: NL Teeth, Lips, Gums, Mucous Membranes Moist Neck: NL Appearance and Movements; NL JVP, Trachea Midline Respiratory: Symmetrical Chest Expansion and Respiratory Effort, Clear to Auscultation Cardiovascular: NL Sounds; No Murmurs; No JVD Abdominal: NL Sounds; No Tenderness; No Distention Lymphatic: No Cervical Adenopathy Extremities: No Edema, No Clubbing, Cyanosis Skin: No Rash or Ulcers, No Nodules or Sclerosis Neurological: NL Muscle Strength and Tone Result Diagrams: 07/29/18 04:33 07/29/18 04:33 Microbiology and Other Data: Microbiology 07/28/18 17:14 Nasal Screen MRSA (PCR) - Final Nasal Mrsa Not Detected Assess/Plan/Problems-Billing Assessment: 83 yo M with H/o PAD, CAD(CABG), AVR presented after a syncopal even with HR in 20's - Patient Problems (1) Bradycardia Comment: likley cause of pt's syncope planned for pacer in the next 1-2 days appreciate cardiology's assistance (2) Afib Comment: paroxysmal, currently in NSR Xarelto on hold due to pacer planned in near future (3) Dementia Comment: sundowns at night Aricept held due to syncope (4) DVT prophylaxis Comment: HSQ Status and Disposition: inpatient
[2018-07-29] MEDS: Acetaminophen TAB* 325 MG PO PRN ×2 (08:27→18:04)
[2018-07-29] MEDS: Cetirizine* 10 MG TAB PO SCH (08:27)
[2018-07-29] MEDS: Polyethylene Glycol 3350* 17 GM PACKET PO SCH ×2 (08:27→20:44)
[2018-07-29] MEDS: Fluticasone NASAL SPRAY 50MCG* 16 gm SPRAY BTL BOTH NARES SCH (08:27)
[2018-07-29] MEDS ORDERED: Spiriva Inhaler DEVICE* 1 EACH DEVICE INH SCH (15:00)
[2018-07-29] MEDS ORDERED: Benzonatate CAP* 100 MG PO PRN (17:42)
[2018-07-29] MEDS: Melatonin 3 MG TAB PO SCH (20:45)
[2018-07-30 03:17] LABS: Urine Appearance Clear; Urine Bilirubin Negative (Negative); Urine Blood Negative (Negative); Urine Color Straw; Urine Glucose 1+(50 mg/dL) (Negative); Urine Ketones Negative (Negative); Urine Nitrite Negative (Negative); Urine Protein Negative (Negative); Urine Specific Gravity 1.008 (1.010-1.030); Urine Urobilinogen Negative (Negative)
[2018-07-30] MEDS: Al Hydrox/Mg Hydrox/Simet LIQ* 30 ML UDC PO PRN (05:38)
[2018-07-30] MEDS: Fluticasone NASAL SPRAY 50MCG* 16 gm SPRAY BTL BOTH NARES SCH (08:04)
[2018-07-30] MEDS ORDERED: Morphine INJ* 2 MG/ML 1 ML SYRINGE (TWO MG - NEW SYRINGE VERSION) IV PRN (08:08)
[2018-07-30] MEDS ORDERED: Tamsulosin CAP* 0.4 MG PO ONE (08:09)
[2018-07-30] MEDS: Cetirizine* 10 MG TAB PO SCH (08:11)
[2018-07-30] MEDS: Acetaminophen TAB* 325 MG PO PRN ×2 (08:11→18:19)
--- NOTE | 2018-07-30 08:11 | PN ---
Subjective Date of Service: 07/30/18 Interval History: patient sitting at bedside tele sinus rhythm, no significant pauses or bradycardia overnight complains of musculoskeletal right lower rib pain continues Medications Active Medications: Acetaminophen (Tylenol Tab*) 650 mg PO Q4H PRN PRN Reason: FEVER/PAIN Last Admin: 07/29/18 18:04 Dose: 650 mg Al Hydrox/Mg Hydrox/Simethicone (Maalox Plus*) 30 ml PO Q6H PRN PRN Reason: INDIGESTION Last Admin: 07/30/18 05:38 Dose: 30 ml Albuterol (Ventolin Hfa Inhaler*) 2 puff INH Q6H PRN PRN Reason: SOB/WHEEZING Benzonatate (Tessalon Cap*) 100 mg PO BID PRN PRN Reason: COUGH Last Admin: 07/29/18 18:04 Dose: 100 mg Cetirizine HCl (Zyrtec*) 10 mg PO DAILY [facility] Last Admin: 07/29/18 08:27 Dose: 10 mg Device (Tiotropium Inhaler Device*) 1 each INH .USE w/ SPIRIVA CAPS [facility] Diazepam (Valium Tab(*)) 5 mg PO ONCE ONE Stop: 07/30/18 12:30 Fluticasone Propionate (Flonase Nasal [place] 50mcg*) 2 spray BOTH NARES DAILY [facility] Last Admin: 07/29/18 08:27 Dose: 2 spray Cefazolin Sodium (Kefzol 2 Gm In Ns Premix(*)) 2 gm in 100 mls @ 200 mls/hr IVPB ONCE ONE Stop: 07/30/18 12:58 Sodium Chloride (Ns 0.9% 1000 Ml) 1,000 mls @ 75 mls/hr IV PER RATE [facility] Cefazolin Sodium 1 gm/ Sodium (Chloride) 10 mls @ 0 mls/hr .SEE ORDER ONCE ONE Stop: 07/30/18 12:30 Melatonin (Melatonin) 3 mg PO BEDTIME [facility] Last Admin: 07/29/18 20:45 Dose: 3 mg Mometasone Furoate/Formoterol Fumar (Dulera 200/5 Mdi*) 2 puff INH BID [facility] Last Admin: 07/29/18 19:26 Dose: 2 puff Polyethylene Glycol/Electrolytes (Miralax*) 17 gm PO BID [facility] Last Admin: 07/29/18 20:44 Dose: 17 gm Tiotropium [place] (Spiriva Cap.Inh*) 1 cap INH DAILY [facility] Objective Vital Signs: Temp Pulse Resp BP Pulse Ox 99.4 F 71 24 142/86 94 07/30/18 08:00 07/30/18 07:00 07/30/18 07:00 07/30/18 07:00 07/30/18 07:00 Oxygen Devices in Use Now: None Appearance: nad, pleasant Neck: Trachea Midline Respiratory: Symmetrical Chest Expansion and Respiratory Effort Cardiovascular: RRR Abdominal: NL Sounds; No Tenderness; No Distention Extremities: No Edema Skin: No Rash or Ulcers Neurological: - - awake, alert, evidence of memory loss Laboratory Results: 07/29/18 04:33 07/29/18 04:33 Total Bilirubin 0.80 mg/dL (0.2-1.0) 07/28/18 10:44 AST 24 U/L (13-39) 07/28/18 10:44 ALT 22 U/L (7-52) 07/28/18 10:44 Alkaline Phosphatase 78 U/L (34-104) 07/28/18 10:44 B-Natriuretic Peptide 71 pg/mL (<=100) 07/28/18 10:44 Total Protein 6.9 g/dL (6.4-8.9) 07/28/18 10:44 Albumin 4.1 g/dL (3.2-5.2) 07/28/18 10:44 Globulin 2.8 g/dL (2-4) 07/28/18 10:44 Albumin/Globulin Ratio 1.5 (1-3) 07/28/18 10:44 TSH 2.35 mcIU/mL (0.34-5.60) 07/28/18 10:44 07/28/18 10:44 Troponin I 0.01 Diagnostic Imaging: echo 07/28/2018 lvef 60-65%, no signifgicant aortic bioprosthetic dysfunction EKG Data: ekg 07/28/2018: NSR, 1 AVB, otherwise essentially unremarkable tele stip during LoC episode reviewed consistent with sinus arrest and junctional escape with HR < 40 bpm Assessment/Plan 1. Symptomatic sinus arrest/junctional escape - LVEF normal - No reversible causes 2. Dementia, mild 3. CAD s/p CABG and AVR 4. Paflutter on xarelto - Last dose 07/28 in AM 5. PAD s/p endovascular aortic and iliac repair 6. Right lower rib pain - Likely from fall/syncope, uncertain Would keep atropine near and temporary pacemaker pads in place Plan for permanent dual chamber pacemaker today Restart home crestor (ordered) Has maintained sinus rhythm will start DVT prophylaxis and likely hold off on restarting anticoagulation for now after pacemaker
[2018-07-30] MEDS: Polyethylene Glycol 3350* 17 GM PACKET PO SCH ×2 (08:13→22:05)
--- NOTE | 2018-07-30 08:18 | PN ---
Subjective Date of Service: 07/30/18 Interval History: Pt c/o R CP when taking a deep breath-started after a fall. Had a Bolton placed last night after having 750 ml of post void residual Objective Active Medications: Acetaminophen (Tylenol Tab*) 650 mg PO Q4H PRN PRN Reason: FEVER/PAIN Last Admin: 07/30/18 08:11 Dose: 650 mg Al Hydrox/Mg Hydrox/Simethicone (Maalox Plus*) 30 ml PO Q6H PRN PRN Reason: INDIGESTION Last Admin: 07/30/18 05:38 Dose: 30 ml Albuterol (Ventolin Hfa Inhaler*) 2 puff INH Q6H PRN PRN Reason: SOB/WHEEZING Benzonatate (Tessalon Cap*) 100 mg PO BID PRN PRN Reason: COUGH Last Admin: 07/29/18 18:04 Dose: 100 mg Cetirizine HCl (Zyrtec*) 10 mg PO DAILY [facility] Last Admin: 07/30/18 08:11 Dose: 10 mg Device (Tiotropium Inhaler Device*) 1 each INH .USE w/ SPIRIVA CAPS [facility] Diazepam (Valium Tab(*)) 5 mg PO ONCE ONE Stop: 07/30/18 12:30 Fluticasone Propionate (Flonase Nasal [place] 50mcg*) 2 spray BOTH NARES DAILY [facility] Last Admin: 07/30/18 08:04 Dose: 2 spray Cefazolin Sodium (Kefzol 2 Gm In Ns Premix(*)) 2 gm in 100 mls @ 200 mls/hr IVPB ONCE ONE Stop: 07/30/18 12:58 Sodium Chloride (Ns 0.9% 1000 Ml) 1,000 mls @ 75 mls/hr IV PER RATE [facility] Cefazolin Sodium 1 gm/ Sodium (Chloride) 10 mls @ 0 mls/hr .SEE ORDER ONCE ONE Stop: 07/30/18 12:30 Melatonin (Melatonin) 3 mg PO BEDTIME [facility] Last Admin: 07/29/18 20:45 Dose: 3 mg Mometasone Furoate/Formoterol Fumar (Dulera 200/5 Mdi*) 2 puff INH BID [facility] Last Admin: 07/29/18 19:26 Dose: 2 puff Morphine Sulfate (Morphine Inj (Syringe))*) 1 mg IV Q4H PRN PRN Reason: PAIN Polyethylene Glycol/Electrolytes (Miralax*) 17 gm PO BID [facility] Last Admin: 07/29/18 20:44 Dose: 17 gm Rosuvastatin Calcium (Crestor (Nf)) 10 mg PO DAILY [facility]; Protocol Tamsulosin HCl (Flomax Cap*) 0.4 mg PO ONCE ONE Stop: 07/30/18 08:10 Tamsulosin HCl (Flomax Cap*) 0.4 mg PO BEDTIME [facility] Tiotropium [place] (Spiriva Cap.Inh*) 1 cap INH DAILY [facility] Vital Signs - 8 hr 07/30/18 07/30/18 07/30/18 01:00 02:00 02:58 Temperature Pulse Rate 73 79 Respiratory 22 25 21 Rate Blood Pressure 128/74 158/87 (mmHg) O2 Sat by Pulse 93 96 Oximetry 07/30/18 07/30/18 07/30/18 03:00 04:00 05:00 Temperature 99.2 F Pulse Rate 69 71 Respiratory 21 23 28 Rate Blood Pressure 138/83 143/87 152/91 (mmHg) O2 Sat by Pulse 97 96 Oximetry 07/30/18 07/30/18 07/30/18 05:37 06:00 07:00 Temperature Pulse Rate 73 71 71 Respiratory 22 23 24 Rate Blood Pressure 161/90 157/93 142/86 (mmHg) O2 Sat by Pulse 97 96 94 Oximetry 07/30/18 08:00 Temperature 99.4 F Pulse Rate Respiratory Rate Blood Pressure (mmHg) O2 Sat by Pulse Oximetry Oxygen Devices in Use Now: None Appearance: 83 yo M in nAD, AAOx2, poor historian Eyes: No Scleral Icterus, PERRLA Ears/Nose/Mouth/Throat: NL Teeth, Lips, Gums, Mucous Membranes Moist Neck: NL Appearance and Movements; NL JVP, Trachea Midline Respiratory: Symmetrical Chest Expansion and Respiratory Effort, Clear to Auscultation, - - tender to plapation in R lower chest Cardiovascular: NL Sounds; No Murmurs; No JVD, RRR Abdominal: NL Sounds; No Tenderness; No Distention Lymphatic: No Cervical Adenopathy Extremities: No Edema, No Clubbing, Cyanosis Skin: No Nodules or Sclerosis, - - small areas of eschar covered abrasions on R distal leg Neurological: NL Muscle Strength and Tone Result Diagrams: 07/29/18 04:33 07/29/18 04:33 Microbiology and Other Data: Microbiology 07/28/18 17:14 Nasal Screen MRSA (PCR) - Final Nasal Mrsa Not Detected Assess/Plan/Problems-Billing Assessment: 83 yo M with H/o PAD, CAD(CABG), AVR presented after a syncopal even with HR in 20's - Patient Problems (1) Bradycardia Comment: likley cause of pt's syncope planned for pacer today appreciate cardiology's assistance (2) Afib Comment: paroxysmal, currently in NSR Xarelto on hold due to pacer planned in near future (3) Dementia Comment: sundowns at night Aricept held due to syncope (4) Urinary retention Comment: Bolton placed on 07/29/18 for retention of 750 ml will start Flomax and try to d/c Bolton tonight after pacer inserted (5) Right-sided chest pain Comment: post fall, likley fx or bruised ribs will get rib films (6) LARISA (acute kidney injury) Comment: due to bradycardia and hypoperfusion, possibly retention played a role. resolved (7) DVT prophylaxis Comment: HSQ Status and Disposition: inpatient
[2018-07-30] MEDS: Mometasone/Formoter 200/5 MDI INH SCH ×2 (08:42→19:33)
[2018-07-30] MEDS: Tiotropium CAP.INH* CAP.INH/18 MCG (USE ORDER SET !) INH SCH (08:42)
[2018-07-30] MEDS ORDERED: Spiriva Inhaler DEVICE* 1 EACH DEVICE INH SCH (09:00)
[2018-07-30] MEDS: NS 0.9% 1000 ML** 1,000 ML IV SCH ×2 (09:02→18:18)
[2018-07-30] MEDS ORDERED: Diazepam TAB(*) 5 MG PO ONE (12:29)
[2018-07-30] MEDS ORDERED: ceFAZolin 2 GM in NS PREMIX(*) 2 GM/100 ML BAG IVPB ONE (12:29)
[2018-07-30] MEDS ORDERED: ceFAZolin 1 GM/10 ML flush(*) SYRINGE for pocket flush (cardiology) FLUSH ONE (12:29)
[2018-07-30] MEDS ORDERED: ceFAZolin VIAL 1 GM in NS *SYRINGE * * 10 ML ONE (12:29)
[2018-07-30] MEDS ORDERED: Midazolam* 1 MG/ML 5 ML VIAL (5 MG) ONE (13:50)
[2018-07-30] MEDS ORDERED: fentaNYL* 50 MCG/ML 2 ML VIAL (100 MCG VIAL) ONE (13:50)
[2018-07-30] MEDS ORDERED: Naloxone* 0.4 MG/ML 1 ML VIAL ONE (13:51)
[2018-07-30] MEDS ORDERED: Lidocaine 1% INJ* 10 MG/ML 30 ML SDV ONE (13:51)
[2018-07-30] MEDS ORDERED: Flumazenil* 0.1 MG/ML 5 ML MDV ONE (13:51)
[2018-07-30] MEDS ORDERED: oxyCODONE/Acetamin 5/325 MG* TAB PO PRN (15:10)
--- NOTE | 2018-07-30 18:43 | OP ---
CC: Dr. Rosen * DATE OF OPERATION: 07/30/18 - ROOM #449 DATE OF : 35 SURGEON: Dr. Claudy Jernigan. ANESTHESIA: Local anesthesia with conscious sedation. PRE-OP DIAGNOSES: Bradycardia, syncope. POST-OP DIAGNOSES: Bradycardia, syncope. OPERATIVE PROCEDURE: Dual-chamber pacemaker implantation. ESTIMATED BLOOD LOSS: None. COMPLICATIONS: None. INDICATIONS: The patient is an 83-year-old gentleman with a history of coronary artery disease and coronary artery bypass surgery who was admitted to the hospital after a syncopal episode. When he was in the emergency room, he had a junctional rhythm at 30 beats per minute, which subsequently returned to normal sinus rhythm. Permanent pacemaker was recommended. DESCRIPTION OF PROCEDURE: The patient was brought to the procedure room in a fasting state. Informed consent had been obtained prior to the procedure. All labs were reviewed. The patient was placed supine on the procedure table. His left deltopectoral area was cleaned and draped in the usual fashion. Lidocaine 1% was used for local anesthesia. The axillary vein was entered by Seldinger technique using ultrasound guidance. A guidewire was placed. A second guidewire was placed under the same technique. A 3.5 cm incision was made in the pectoral area. Blunt dissection was carried down to the pectoral fascia and a pocket was fashioned for the pacemaker. Over the guidewire, a 7-Urdu sheath introducer was placed, through which a right ventricular lead was advanced to the RV apex. The right ventricular lead is a Medtronic [id number], serial number [id number]. It had an R- wave sensitivity of 6.1, impedance 808 ohms, threshold 0.9 volts at 0.5 msec. The ventricular lead was sutured to the pectoral fascia. Over the second guidewire, a 7-Urdu sheath introducer was placed, through which a right atrial lead was advanced to the high right atrium. The right atrial lead is a Medtronic model 5076, serial number [id number]. It had a P-wave sensitivity of 2.4, impedance 675 ohms, threshold 1.3 volts at 0.5 msec. The atrial lead was sutured to the pectoral fascia. The pocket was flushed. A generator was attached appropriately to the atrioventricular lead. The generator is a Medtronic model W1DR01, serial number [id number]. The device was placed in the pocket. The surgical incision was closed in 3 layers. The patient was returned to the holding area in stable condition. [id number]/[facility] #: [id number] MTDD
[2018-07-30] MEDS ORDERED: Polyethylene Glycol 3350* 17 GM PACKET PO PRN (20:45)
[2018-07-30] MEDS ORDERED: Senna TAB PO PRN (20:45)
[2018-07-30] MEDS: Melatonin 3 MG TAB PO SCH (21:55)
[2018-07-30] MEDS: Docusate CAP* 100 MG PO SCH (21:56)
[2018-07-30] MEDS: CMC:Rosuvastatin (NF) 10 MG TAB PO SCH (21:56)
[2018-07-30] MEDS: ceFAZolin VIAL(*) 1 GM in NS 0.9% 50 ML* 50 ML IVPB SCH (21:56)
[2018-07-31] MEDS: Al Hydrox/Mg Hydrox/Simet LIQ* 30 ML UDC PO PRN (04:49)
[2018-07-31] MEDS: ceFAZolin VIAL(*) 1 GM in NS 0.9% 50 ML* 50 ML IVPB SCH (06:05)
[2018-07-31 06:51] LABS: ABS Lymphocytes 0.9 10^3/ul (1.0-4.8); ABS Neutrophils 6.8 10^3/ul (1.5-7.7); Eosinophil % 0.2 %; Hematocrit 43 % (42-52); Hemoglobin 14.7 g/dL (14.0-18.0); Lymphocyte % 10.3 %; Mean Corpuscular HGB Conc 34 g/dL (31-36); Mean Corpuscular Hemoglobin 30 pg (27-31); Mean Corpuscular Volume 88 fL (80-94); Mean Platelet Volume 8.4 fL (7.4-10.4); Platelet Count 118 10^3/uL (150-450); Red Blood Count 4.93 10^6 /uL (4.18-5.48); Red Cell Distribution Width 15 % (10-15); White Blood Count 8.8 10^3/uL (3.5-10.8)
[2018-07-31 07:10] LABS: BUN/Creatinine Ratio 17.3 (8-20); Calcium 9.1 mg/dL (8.6-10.3); EGFR African American 88.4 (>60); Potassium 4.3 mmol/L (3.5-5.0)
[2018-07-31] MEDS: Tiotropium CAP.INH* CAP.INH/18 MCG (USE ORDER SET !) INH SCH (07:36)
[2018-07-31] MEDS: Mometasone/Formoter 200/5 MDI INH SCH (07:36)
[2018-07-31] MEDS: CMC:Rosuvastatin (NF) 10 MG TAB PO SCH (09:37)
[2018-07-31] MEDS: Docusate CAP* 100 MG PO SCH (09:38)
[2018-07-31] MEDS: Cetirizine* 10 MG TAB PO SCH (09:38)
[2018-07-31] MEDS: Polyethylene Glycol 3350* 17 GM PACKET PO SCH (09:46)
[2018-07-31] MEDS ORDERED: Lidocaine PATCH 5%* 1 PATCH TRANSDERM SCH (10:00)
[2018-07-31] MEDS ORDERED: Metoprolol Succinate XL TAB* 25 MG PO SCH (10:00)
[2018-07-31] MEDS ORDERED: Aspirin 81 mg CHEW TAB* 81 MG TAB.CHEW PO ONE (10:09)
--- NOTE | 2018-07-31 10:22 | PN ---
Subjective Date of Service: 07/31/18 Interval History: s/p SSS, PAfib, pacemaker s/p POD 1 pacemaker patient in bed comfortable without complaints at bedside x-ray confirmed right broken ribs from syncope no angina or dyspnea no current significant wound pain Had paroxysmal rapid afib overnight see separate note for normal device interrogation and reprogramming wound today examined left upper pectoral site. wound intact, alcon intact. no hematoma. no drainage Medications Active Medications: Acetaminophen (Tylenol Tab*) 650 mg PO Q4H PRN PRN Reason: FEVER/PAIN Last Admin: 07/30/18 18:19 Dose: 650 mg Al Hydrox/Mg Hydrox/Simethicone (Maalox Plus*) 30 ml PO Q6H PRN PRN Reason: INDIGESTION Last Admin: 07/31/18 04:49 Dose: 30 ml Albuterol (Ventolin Hfa Inhaler*) 2 puff INH Q6H PRN PRN Reason: SOB/WHEEZING Aspirin (Aspirin 81 Mg Chew Tab*) 81 mg PO DAILY [facility] Benzonatate (Tessalon Cap*) 100 mg PO BID PRN PRN Reason: COUGH Last Admin: 07/29/18 18:04 Dose: 100 mg Cetirizine HCl (Zyrtec*) 10 mg PO DAILY [facility] Last Admin: 07/31/18 09:38 Dose: 10 mg Device (Tiotropium Inhaler Device*) 1 each INH .USE w/ SPIRIVA CAPS [facility] Docusate Sodium (Colace Cap*) 100 mg PO BID [facility] Last Admin: 07/31/18 09:38 Dose: 100 mg Fluticasone Propionate (Flonase Nasal [place] 50mcg*) 2 spray BOTH NARES DAILY [facility] Last Admin: 07/30/18 08:04 Dose: 2 spray Cefazolin Sodium 1 gm/ Sodium (Chloride) 50 mls @ 200 mls/hr IVPB Q8H [facility] Stop: 07/31/18 14:14 Last Admin: 07/31/18 06:05 Dose: 200 mls/hr Lidocaine (Lidoderm 5% Patch*) 1 patch TRANSDERM DAILY [facility] Last Admin: 07/31/18 09:38 Dose: 1 patch Melatonin (Melatonin) 3 mg PO BEDTIME [facility] Last Admin: 07/30/18 21:55 Dose: 3 mg Metoprolol Succinate (Toprol Xl Tab*) 25 mg PO DAILY [facility] Last Admin: 07/31/18 09:37 Dose: 25 mg Mometasone Furoate/Formoterol Fumar (Dulera 200/5 Mdi*) 2 puff INH BID [facility] Last Admin: 07/31/18 07:36 Dose: 2 puff Morphine Sulfate (Morphine Inj (Syringe))*) 1 mg IV Q4H PRN PRN Reason: PAIN Oxycodone/Acetaminophen (Percocet 5/325 Tab*) 1 tab PO Q4H PRN PRN Reason: PAIN Pharmacy Profile Note (Lidocaine Patch Remove*) 1 note N/A 2100 [facility] Polyethylene Glycol/Electrolytes (Miralax*) 17 gm PO BID [facility] Last Admin: 07/31/18 09:46 Dose: 17 gm Polyethylene Glycol/Electrolytes (Miralax*) 17 gm PO DAILY PRN PRN Reason: CONSTIPATION Last Admin: 07/30/18 21:55 Dose: 17 gm Rosuvastatin Calcium (Crestor (Nf)) 10 mg PO DAILY [facility]; Protocol Last Admin: 07/31/18 09:37 Dose: 10 mg Senna (Senokot Tab*) 1 tab PO BEDTIME PRN PRN Reason: CONSTIPATION Last Admin: 07/30/18 21:55 Dose: 1 tab Tiotropium [place] (Spiriva Cap.Inh*) 1 cap INH DAILY [facility] Last Admin: 07/31/18 07:36 Dose: 1 cap Objective Vital Signs: Temp Pulse Resp BP Pulse Ox 98.0 F 90 18 144/95 96 07/31/18 03:54 07/31/18 07:39 07/31/18 07:39 07/30/18 21:53 07/31/18 07:39 Oxygen Devices in Use Now: None Appearance: nad, pleasant Neck: Trachea Midline Respiratory: Symmetrical Chest Expansion and Respiratory Effort Cardiovascular: RRR, - - no murmur, prior sternotomy scar noted. see above for wound evaluation Abdominal: NL Sounds; No Tenderness; No Distention Extremities: No Edema Skin: No Rash or Ulcers Neurological: - - awake, alert, evidence of memory loss Laboratory Results: 07/31/18 06:36 07/31/18 06:36 Total Bilirubin 0.80 mg/dL (0.2-1.0) 07/28/18 10:44 AST 24 U/L (13-39) 07/28/18 10:44 ALT 22 U/L (7-52) 07/28/18 10:44 Alkaline Phosphatase 78 U/L (34-104) 07/28/18 10:44 B-Natriuretic Peptide 71 pg/mL (<=100) 07/28/18 10:44 Total Protein 6.9 g/dL (6.4-8.9) 07/28/18 10:44 Albumin 4.1 g/dL (3.2-5.2) 07/28/18 10:44 Globulin 2.8 g/dL (2-4) 07/28/18 10:44 Albumin/Globulin Ratio 1.5 (1-3) 07/28/18 10:44 TSH 2.35 mcIU/mL (0.34-5.60) 07/28/18 10:44 07/28/18 10:44 Troponin I 0.01 Diagnostic Imaging: echo 07/28/2018 lvef 60-65%, no signifgicant aortic bioprosthetic dysfunction Exam Date: 07/31/18 0800 CHEST PA & LAT 2 VWS IMPRESSION: #. Negative for pneumothorax or pulmonary edema following dual chamber pacemaker device placement. EKG Data: ekg 07/28/2018: NSR, 1 AVB, otherwise essentially unremarkable tele stip during LoC episode reviewed consistent with sinus arrest and junctional escape with HR < 40 bpm Assessment/Plan 1. Symptomatic sinus arrest/junctional escape. Paroxysmal atrial fibrillation. SSS s/p POD 1 dual chamber PM - LVEF normal 2. Dementia, mild 3. CAD s/p CABG and AVR 4. Paflutter on xarelto 5. PAD s/p endovascular aortic and iliac repair 6. Right lower rib fracture from syncope - treatment as per primary service, avoid nsaids - Continue crestor - Start 25 mg po toprol for rate control of paroxysmal atrial fibrillation ( ordered) - Give aspirin 325 mg x 1 now then 81 mg po daily (ordered) - Would hold xarelto until wound check follow up. If no hematoma can change aspirin back to xarelto
--- NOTE | 2018-07-31 10:25 | PROCNOTE ---
Cardiology Procedure Note Dual chamber medtronic pacemaker interrogation and reprogramming 07/31/2018 RA impedence 456, RV 551 Ra sensing 3.3, RV 11.4 [place] RA 0.75 @ 0.4, RV 0.5@ 0.4 AP 7.4%, RV 1.2% pacing no VT 17.9% Afib Device reprogrammed to AAI-DDD and Minvera actiated
[2018-07-31 12:23] VITALS: BP 113/76
--- NOTE | 2018-07-31 14:32 | DS ---
CC: Dr. Greg Guan; Dr. Velarde; Dr. Rosen; Dr. Jernigan; Dr. Lind * DISCHARGE SUMMARY: DATE OF ADMISSION: 07/28/18 DATE OF DISCHARGE: 07/31/18 PRIMARY CARE PROVIDER: Dr. Greg Guan. FISCAL ACCOUNTING CLERK: Dr. Velarde. CONDITION AT DISCHARGE: Stable. DISCHARGE DISPOSITION: To home. DISCHARGE DIAGNOSES: 1. Syncope due to sinus node dysfunction, status post pacemaker placement by Dr. Jernigan on 07/30/18. 2. Fractures of ribs on the right side rib #6, 7, and 8 due to trauma. SECONDARY DIAGNOSES: 1. History of paroxysmal atrial fibrillation. 2. History of dementia. 3. History of dyslipidemia. 4. Status post coronary artery bypass grafting. 5. History of peripheral arterial disease. 6. Asthma. 7. Gastroesophageal reflux disease. 8. Diabetes diet controlled. 9. Hearing loss. MEDICATIONS AT DISCHARGE: New medications at home include: 1. Percocet 1 tablet every 4 hours p.r.n. 2. Toprol XL 25 mg daily. 3. Lidoderm patch 5% applied to the right lower chest on a daily basis. 4. Aspirin 81 mg daily. The patient's I-STOP was checked and the patient was not prescribed any control substance in the past 6 months. The patient's Xarelto was held until he is seen by Dr. Archibald for pacemaker check next week. Remaining medications are unchanged and include: 1. Crestor 10 mg daily. 2. Zantac 150 mg every 12 hours. 3. MiraLAX 17 g b.i.d. p.r.n. 4. Claritin 10 mg daily. 5. Atrovent inhaler 2 puffs every 6 hours p.r.n. 6. Fluticasone nasal spray 50 mcg 2 sprays both nostrils daily. 7. Aricept 5 mg at bedtime. 8. Symbicort 80/4.5 one inhalation daily p.r.n. 9. Albuterol inhaler on a p.r.n. basis. LABORATORY DATA AND STUDIES PERFORMED DURING THE HOSPITAL STAY: Include: On : White blood cell count of 8.8, hemoglobin 14.7, hematocrit 43, and platelets 118. Sodium 137, potassium 4.3, chloride 105, carbon dioxide 24, BUN 17, creatinine 0.98. Post pacemaker placement x-ray obtained today. Impression: "Negative for pneumothorax or pulmonary edema following dual chamber pacemaker device placement." Transthoracic echocardiogram obtained on 07/28/18. Impression: "Left ventricular systolic function is normal. The estimated ejection fraction is 60 % to 65%. Systolic function is unchanged from the study of May 2017. Doppler parameters are consistent with abnormal left ventricular relaxation. Grade 1 diastolic dysfunction. Right ventricle systolic function is mildly reduced. Overall, RV function is worse in comparison with the study from May 2017. Left atrium is mildly dilated. 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 The stenosis severity has increased in comparison with the study from May 2017. There was mild regurgitation. The aortic valve mean systolic gradient is 9 mmHg, the peak systolic gradient is 15 mmHg. The valve area with velocity time is 1.5 cm2. The tricuspid valve, there is mild-to- moderate regurgitation. Pulmonary arteries, systolic pressure is mildly increased noted at 39 mmHg." PROCEDURES PERFORMED DURING THE HOSPITAL STAY: Included pacemaker insertion by Dr. Jernigan performed on 07/30/18. The pacemaker is a [employer] model W1DR01, serial number [id number]. The right ventricular lead is serial number of [id number] and the right atrial lead is [id number]. Rib x-rays obtained on 07/30/18. Impression: "Findings of displaced fractures of the right 6 through 8 ribs." HOSPITALIZATION COURSE: Sampson Covarrubias is an 82-year-old male with a history of dementia as well as atrial fibrillation for which he was anticoagulated on Xarelto, who presented to the hospital after a syncopal episode when he was in the kitchen. The patient was noted to have junctional rhythm on evaluation in the ED with the heart rate below 30. He was placed in the intensive care unit for monitoring and due to his anticoagulation with Xarelto he had to wait a couple of days prior to insertion of his pacemaker that occurred on 07/30/18. Post pacemaker insertion, the patient had been occasionally in atrial fibrillation and his metoprolol that was stopped a few months ago was restarted. Dr. Lind saw the patient post pacemaker placement and recommended placing the patient on baby aspirin and holding his Xarelto until the patient is seen for pacemaker check with Dr. Jernigan next week. The patient was instructed to continue to keep DuoDERM intact and to evaluate the wound on as needed basis. The remaining pacemaker instructions specifically designed by cardiology group was sent with the patient in a printed form. The patient was also noted to have right-sided rib fractures 6 through 8. The patient was prescribed Lidoderm patch and Percocet. At the hospital, he occasionally complained of severe pain that was worse with movement, but otherwise he was rather comfortable. PHYSICAL EXAMINATION: Physical exam at the time of discharge, blood pressure 113 /76, heart rate of 78 and regular, respiratory rate 18, oxygen saturation 99% on room air, and temperature 98.0. General: The patient is a pleasant 82-year- old male who is in no acute distress. Alert and oriented x2. He is a rather poor historian. HEENT: Head: Atraumatic, normocephalic. Eyes: Pupils are equal and reactive to light and accommodation. Oropharynx is clear. Mucosa moist. Neck: Supple. No JVD. No bruits bilaterally. Cardiovascular: Regular rate and rhythm. No murmur. Respiratory: Clear to auscultation bilaterally. Abdomen: Soft, nontender. Bowel sounds are present in all 4 quadrants. Extremities: There is no edema. Pulses +2 bilaterally. No clubbing or cyanosis. Neuro Evaluation: Speech is clear. Cranial nerves II through XII are grossly intact. Motor strength is 5/5 bilaterally. Please note that this is a short summary of the patient's hospital stay, please refer to further medical records for details. TIME SPENT: Approximately 40 minutes was spent on the patient's discharge. [id number]/CPS #: [id number] MTDD
[2018-07-31] MEDS ORDERED: Lidocaine Patch REMOVE* 1 NOTE MISC SCH (21:00)
[2018-07-31] MEDS ORDERED: Tamsulosin CAP* 0.4 MG PO SCH (21:00)
[2018-08-01] MEDS ORDERED: Aspirin 81 mg CHEW TAB* 81 MG TAB.CHEW PO SCH (09:00)
== END 2018-07-31 15:09 | disposition home or self-care (01) | DRG 243 ==
LOC: ED 10:06 → ICU 13:29 → MEDTELE 07-30 15:48
PROVIDERS: ADMIT Internal Medicine; ATTEND Internal Medicine
PROC: 0T9B70Z Drainage of Bladder with Drainage Device, Via Natural or Artificial Opening (ICD-10-PCS; 2018-07-29)
PROC: 02H63JZ Insertion of Pacemaker Lead into Right Atrium, Percutaneous Approach (ICD-10-PCS; 2018-07-30)
PROC: 02HK3JZ Insertion of Pacemaker Lead into Right Ventricle, Percutaneous Approach (ICD-10-PCS; 2018-07-30)
PROC: 0JH606Z Insertion of Pacemaker, Dual Chamber into Chest Subcutaneous Tissue and Fascia, Open Approach (ICD-10-PCS; principal; 2018-07-30 14:00)
DX: I49.5 Sick sinus syndrome (principal); S22.41XA Multiple fractures of ribs, right side, initial encounter for closed fracture; N17.9 Acute kidney failure, unspecified; I48.92 Unspecified atrial flutter; I25.10 Atherosclerotic heart disease of native coronary artery without angina pectoris; I10 Essential (primary) hypertension; J44.9 Chronic obstructive pulmonary disease, unspecified; K21.9 Gastro-esophageal reflux disease without esophagitis; M19.90 Unspecified osteoarthritis, unspecified site; R40.2362 Coma scale, best motor response, obeys commands, at arrival to emergency department; R40.2142 Coma scale, eyes open, spontaneous, at arrival to emergency department; R40.2252 Coma scale, best verbal response, oriented, at arrival to emergency department; F41.9 Anxiety disorder, unspecified; G30.9 Alzheimer's disease, unspecified; F02.80 Dementia in other diseases classified elsewhere, unspecified severity, without behavioral disturbance, psychotic disturbance, mood disturbance, and anxiety; I48.0 Paroxysmal atrial fibrillation; E11.51 Type 2 diabetes mellitus with diabetic peripheral angiopathy without gangrene; H91.93 Unspecified hearing loss, bilateral; E78.5 Hyperlipidemia, unspecified; I44.0 Atrioventricular block, first degree; R33.9 Retention of urine, unspecified; W17.89XA Other fall from one level to another, initial encounter; I08.3 Combined rheumatic disorders of mitral, aortic and tricuspid valves; I27.20 Pulmonary hypertension, unspecified; Z98.42 Cataract extraction status, left eye; Z95.1 Presence of aortocoronary bypass graft; Z97.4 Presence of external hearing-aid; Z95.2 Presence of prosthetic heart valve; Z86.19 Personal history of other infectious and parasitic diseases; Z82.49 Family history of ischemic heart disease and other diseases of the circulatory system; Z87.891 Personal history of nicotine dependence; Z72.89 Other problems related to lifestyle; Y92.002 Bathroom of unspecified non-institutional (private) residence as the place of occurrence of the external cause; Z79.82 Long term (current) use of aspirin; Z79.51 Long term (current) use of inhaled steroids
CPT/HCPCS: 33208; 36415; 70450; 71045; 71046; 80048; 80053; 80307; 80320; 81003; 82533; 82550; 83605; 83735; 83880; 84443; 84484; 85025; 87641; 93005; 93306; 94640; 99156; 99157; 99285; A9270-GY; C1785; C1892; C1898; G0480; J0461; J0690; J1644; J2250; J2310; J3010